=== PATIENT | female | born 1945 | race Caucasian/White ===

== ENCOUNTER → 2023-07-05 11:11 | Outpatient (REF) | payer MEDICARE, OTHER, SELFPAY ==
[2023-07-05 12:12] LABS: % Basophils 0.5 % (0-2); % Eosinophils 2.4 % (0-6); % Immature Granulocytes 0.5 % (0-0.5); % Lymphocytes 23.1 % (20.5-51.1); % Monocytes 6.1 % (1.7-9.3); % Neutrophils 67.4 % (42.2-75.2); Absolute Eosinophils 0.2 10^3/uL (0-0.7); Absolute Lymphocytes 1.8 10^3/uL (1.2-3.4); Absolute Monocytes 0.5 10^3/uL (0.1-0.6); Absolute Neutrophils 5.3 10^3/uL (1.4-6.5); Hematocrit 44.9 % (37.0-47.0); Mean Corp Hgb Conc. 33.4 g/dL (33.0-37.0); Mean Corpuscular Hgb 31.5 pg (27.0-31.0); Mean Corpuscular Volume 94.3 fL (81.0-99.0); Nucleated Red Blood Cells % 0 %; Platelet Count 191 10^3/uL (130-400); Red Blood Cell Count 4.76 10^6/uL (4.20-5.40); Red Cell Dist. Width 12.9 % (11.5-14.5); White Blood Cell Count 7.9 10^3/uL (4.8-10.8)
[2023-07-05 12:56] LABS: ALT (SGPT) 29 U/L (0-35); AST (SGOT) 28 U/L (14-36); Albumin 4.6 g/dl (3.5-5.0); Alkaline Phosphatase 85 U/L (38-126); Blood Urea Nitrogen 26 mg/dl (7-17); Calcium 10.3 mg/dl (8.4-10.2); Carbon Dioxide 32 mmol/L (22-30); Chloride 103 mmol/L (98-107); Glucose 94 mg/dl (70-99); Sodium 142 mmol/L (135-145); Total Bilirubin 0.6 mg/dl (0.2-1.3); Total Protein 7.8 g/dl (6.3-8.2); Uric Acid 8.3 mg/dl (2.5-6.2); eGFR 35.23
[2023-07-05 14:44] LABS: Erythrocyte Sed Rate 17 mm/hour (0-20)
[2023-07-07 08:02] LABS: CCP Antibody IgG/IgA 10 Units (0-19)
[2023-07-09 16:46] LABS: Rheumatoid Agglutinin Less Than 10 IU (<10 IU)
== END ==
LOC: REG 11:11
PROVIDERS: ATTENDING PHYSICIAN Physician Assistant; FAMILY PHYSICIAN Internal Medicine
DX: M79.671 Pain in right foot (principal); M06.4 Inflammatory polyarthropathy; M10.9 Gout, unspecified
CPT/HCPCS: 36415; 73630; 80053; 84550; 85025; 85652; 86140; 86200; 86430

== ENCOUNTER → 2023-09-28 10:25 | Outpatient (REF) | payer MEDICARE, OTHER, SELFPAY | LOC: MRI 3T 10:25 | PROVIDERS: ATTENDING PHYSICIAN Internal Medicine Hematology & Oncology; FAMILY PHYSICIAN Internal Medicine; REFERRING PHYSICIAN Urology | DX: N20.0 Calculus of kidney (principal); R35.0 Frequency of micturition; C50.411 Malignant neoplasm of upper-outer quadrant of right female breast; Z12.31 Encounter for screening mammogram for malignant neoplasm of breast | CPT/HCPCS: 76775; 77049; A9585 ==

== ENCOUNTER → 2023-11-01 11:02 | Outpatient (REF) | payer MEDICARE, OTHER, SELFPAY ==
[2023-11-01 12:40] LABS: Blood Urea Nitrogen 29 mg/dl (7-17); Calcium 10.6 mg/dl (8.4-10.2); Carbon Dioxide 31 mmol/L (22-30); Chloride 105 mmol/L (98-107); Glucose 99 mg/dl (70-99); Potassium 5.1 mmol/L (3.5-5.1); Sodium 146 mmol/L (135-145); Uric Acid 9.3 mg/dl (2.5-6.2); eGFR 35.23
[2023-11-03 09:08] LABS: Intact PTH 79.8 pg/ml (13.6-85.8)
== END ==
LOC: REG 11:02
PROVIDERS: ATTENDING PHYSICIAN Urology; FAMILY PHYSICIAN Internal Medicine
DX: N20.0 Calculus of kidney (principal)
CPT/HCPCS: 36415; 80048; 83970; 84550

== ENCOUNTER 2023-12-03 09:23 | Inpatient (IN) | payer MEDICARE, OTHER, SELFPAY ==
[2023-12-03 05:28] VITALS: BMI 30.3
[2023-12-03 05:38] VITALS: BP 153/72
[2023-12-03 05:41] VITALS: BP 153/72
--- NOTE | 2023-12-03 07:15 | ED.GENMED ---
History of Present Illness
General
Chief Complaint: Fall
Source: patient
Exam Limitations: none
Time Seen by Provider: 12/03/23 06:06
Nursing documentation reviewed up to this point in time: agreed with
History of Present Illness
History of Present Illness:
78-year-old female with a past medical history of hypertension, hyperlipidemia who presents to the emergency room from home where she lives independently and ambulates without assistance; she presents after mechanical fall with left hip pain.
Patient reports that she has issues with chronic incontinence of urine. She says that she woke up last night was having some incontinence and rodriguez to the bathroom. She says that some of her urine leaked on the bathroom floor and she slipped and
fell onto her left hip. She says that she did not hit her head or lose consciousness. She did injure her left elbow she says that she hit it on the toilet seat. She says that she had significant pain in the hip immediately and had to crawl to the
phone to call 911. She denies any headache. Denies any neck pain. She denies any back pain. Denies any chest or abdominal pain. She has some mild pain in the left elbow but most of her pain is in the left lateral hip. Pain much worse with
movement, better when sitting still. She is on aspirin but no other blood thinners.
Past History
Past History
ED Past Medical History: None, Cancer, HTN and Hypercholesterolemia
ED Past Surgical History: None and Gynecological
Social History
Tobacco: Non-smoker
Alcohol: None
Drug: None
Personal:
Living: with family
Employment: Retired
Review of Systems
Review of Systems
All Other Systems: ROS reviewed and negative except as documented in HPI and ROS
Respiratory: Denies trouble breathing
Cardiac: Denies chest pain
ABD/GI: Denies abdominal pain, nausea or vomiting
: Denies flank pain
Musculoskeletal: Reports joint pain; Denies neck pain or back pain
Neurological: Denies dizzy or headache
Phy Exam
Physical Exam
Physical Exam:
General: Awake, alert; no acute distress
Head: Normocephalic, atraumatic
Eyes: Conjunctiva normal, pupils equal round reactive to light bilaterally
Throat: Airway intact, handling secretions
Neck: Trachea midline, no cervical spine tenderness
Back: No signs of trauma the back or flank and no tenderness in the thoracic or lumbar spine
Lungs: Clear to auscultation bilaterally, no wheezing, rales, rhonchi
Heart: Regular rate and rhythm, no murmurs, gallops, or rubs; no chest wall tender
Abd: Soft, non distended, nontender
Neuro: Cranial nerves grossly intact, speech fluid
Skin: Large hematoma left elbow
Extremities: Patient has shortened and externally rotated left lower extremity; she has pain with attempts at internal/external rotation of left hip and severe pain with any attempts at flexion; she has no tenderness in the left lower leg,
knee/ankle and no edema in the left lower extremity, she has a palpable left PT and DP pulse; right lower extremity atraumatic and she moves it through comfortable range of motion although some pain in the left hip with attempts at movement on the
right; she has a large hematoma on the left elbow and tenderness in this area but moves the elbow through full range of motion, no tenderness in the left shoulder or wrist; right upper extremity atraumatic; good bilateral radial pulses
Scores
Heart Failure Risk
Heart Failure Risk Score: Not Applicable
Heart Score for Chest Pain Patients
STEMI patient?: Not applicable
Withdrawal Assessment of Alcohol
Withdrawal Assessment Completed?: Not applicable
Course
Orders/Labs/Results
Orders:
Orders
12/03/23 05:29
CR Hip - LT w/wo Pel 2-3 Vw* Urgent
Comment:
Reason For Exam: injury, fall
Include a pelvis x-ray?: Yes
Elbow, Left [CR Elbow - Left Min 3 Views ] Urgent
Comment:
Reason For Exam: injury, fall
12/03/23 06:58
Electrocardiogram (*1) Urgent
Reason for Study: PreOp
ORTHOPEDIC CONSULT Urgent
Consulting Provider: Richard Thornton
Was physician already notified: Yes
EKG- Treatment ONCE
12/03/23 07:13
Type+Screen Urgent
Complete Blood Count/With Diff Urgent
Comprehensive Metabolic Panel Urgent
PTT Urgent
Prothrombin Time Urgent
Vital Signs
Initial and Last Documented VS:
Initial Vital Signs
Pulse Ox
96
12/03/23 05:36
Last Documented Vital Signs
Temp Pulse Resp BP Pulse Ox
36.7 C 59 17 153/72 95
12/03/23 05:41 12/03/23 05:41 12/03/23 05:41 12/03/23 05:41 12/03/23 05:41
MDM/Problems Addressed
Differential Diagnosis Includes:
Hip pain: Left hip fracture, left hip dislocation, left hip contusion
Left elbow pain: Contusion/hematoma, fracture, dislocation
MDM/Problems Addressed:
78-year-old female presents after mechanical slip and fall this morning onto her left hip. She presents with left hip pain and some pain in her left elbow. No head trauma. On aspirin but no other blood thinners. Mildly hypertensive but otherwise
normal vitals. Physical exam as above. She had x-rays ordered in triage�reviewed x-ray of the left hip and it appears to show an acute left hip fracture on my independent review. Reviewed x-ray of the left elbow and no acute osseous abnormality
although she does clearly have soft tissue swelling consistent with a large hematoma. Will plan to place an IV check basic screening labs, screening EKG. Case discussed with orthopedics for consultation regarding left hip fracture�plan likely for
operative repair tomorrow. Case discussed with hospitalist for admission. I did offer pain control�patient says that her pain is very well-controlled she is sitting still in bed and declined pain meds at this point.
Chronic conditions affecting care:
Urinary incontinence chronically which caused a slip and fall in the bathroom
Acute Exacerbation and/or Progression of Chronic Illness:
Acutely hypertensive with no signs or symptoms of hypertensive emergency�no indication for emergent antihypertensive therapy at present
Acute Exacerbation and/or Progression of Chronic Illness: HTN
*Radiology
Radiology exam reviewed: preliminary read by ED provider
*Pulse Oximetry
Patient hypoxic: no
*EKG
Interpreted by ED Provider?: Yes
Heart Rate: 65
Rate: normal
Rhythm: sinus
[place]: normal axis
Interval: normal interval
QRS Pattern: right bundle branch block
Ischemia: no ischemia
*Critical Care Note
Total Time (30-74mins, 75-104mins- exclusive of procedures): Not Applicable
Data Reviewed
Review of Other/Old Records Reveals: Labs and Records
Source: patient and ambulance crew
Patient Management
Discussion with other providers: Hospitalist (Case discussed with hospitalist) and Price Economist (Case discussed with orthopedics)
Escalation/DeEscalation of care consider admission/obs:
Admission indicated
ED Attending Note
-
Portions of this chart may have been created with voice recognition software.� Occasional wrong word or��sound alike� substitutions may have occurred due to the inherent limitations of voice recognition software.
Discharge Plan
Departure
Patient Disposition: Admit
Date of Disposition: 12/03/23
Time of Disposition: 07:35
Admit to doctor: Sona
Presentation/result/management discussed w/ accepting MD/DO: Hospitalist
Discharge Problem:
Closed fracture of left hip, Traumatic hematoma of left elbow
Prescriptions:
No Action
multivitamin [One-A-Day Essential] 1 EACH tablet
1 ea PO DAILY
sertraline 100 MG tablet
100 mg PO DAILY
ascorbic acid (vitamin C) [Vitamin C] 500 MG capsule, extended release
1,000 mg PO HS
aspirin 81 MG tablet,chewable
81 mg PO HS
amlodipine [Norvasc] 5 MG tablet
5 mg PO HS
atorvastatin 40 mg Tablet
40 mg PO HS
gabapentin 100 mg Capsule
100 mg PO DAILY
metoprolol succinate 25 mg Tablet Extended Release 24 Hr
25 mg PO DAILY
coQ10 (ubiquinol) 200 mg Capsule
400 mg PO DAILY
Referrals:
Ken Mckeon MD [Family Provider] -
Interventions
Interventions:
*Risk Screen - Suicide Last Done: 12/03/23 05:35
*General Assessment Last Done: 12/03/23 05:33
*Neglect/Abuse Screening Last Done: 12/03/23 05:35
ED- Fall Risk Assessment Last Done: 12/03/23 05:36
*ED COVID-19 Vaccine History Last Done: 12/03/23 05:33
ED-Musculoskeletal Assessment Last Done: 12/03/23 05:36
ED- Neurological Assessment Last Done: 12/03/23 05:36
ED-Skin Assessment Last Done: 12/03/23 05:36
Discharge Date and Time
Print Language: CHILEAN
[2023-12-03 07:42] LABS: % Basophils 0.2 % (0-2); % Eosinophils 0.1 % (0-6); % Immature Granulocytes 0.7 % (0-0.5); % Lymphocytes 3.7 % (20.5-51.1); % Neutrophils 91.3 % (42.2-75.2); Absolute Immature Granulocytes 0.1 10^3/uL (0-0.05); Absolute Lymphocytes 0.6 10^3/uL (1.2-3.4); Absolute Monocytes 0.7 10^3/uL (0.1-0.6); Absolute Neutrophils 15.1 10^3/uL (1.4-6.5); Hematocrit 42.7 % (37.0-47.0); Mean Corp Hgb Conc. 35.1 g/dL (33.0-37.0); Mean Corpuscular Hgb 31.3 pg (27.0-31.0); Mean Corpuscular Volume 89.1 fL (81.0-99.0); Nucleated Red Blood Cells % 0 %; Platelet Count 178 10^3/uL (130-400); Red Blood Cell Count 4.79 10^6/uL (4.20-5.40); Red Cell Dist. Width 12.8 % (11.5-14.5); White Blood Cell Count 16.6 10^3/uL (4.8-10.8)
[2023-12-03 07:47] LABS: INR 1.02; PT 13.4 Sec (11.4-14.6)
[2023-12-03 07:48] LABS: APTT 28.5 Sec (23.4-35.0)
[2023-12-03 07:58] LABS: ALT (SGPT) 28 U/L (0-35); AST (SGOT) 41 U/L (14-36); Albumin 4.5 g/dl (3.5-5.0); Alkaline Phosphatase 80 U/L (38-126); Blood Urea Nitrogen 19 mg/dl (7-17); Calcium 9.9 mg/dl (8.4-10.2); Carbon Dioxide 29 mmol/L (22-30); Chloride 104 mmol/L (98-107); Estimated Creatinine Clearance 42 ml/min; Glucose 151 mg/dl (70-99); Potassium 4.1 mmol/L (3.5-5.1); Sodium 141 mmol/L (135-145); Total Bilirubin 0.7 mg/dl (0.2-1.3); Total Protein 7.4 g/dl (6.3-8.2); eGFR 46.05
--- NOTE | 2023-12-03 08:49 | HPS.HSE ---
Family Physician
-
Family Physician: Ken Mckeon
Chief Complaint
-
mechanical fall with L hip pain
History of Present Illness
HPI: 78-year-old female with past medical history of hypertension, hyperlipidemia, R breast cancer s/p mastectomy; who presented with mechanical fall at home and left hip pain. Patient reported that she has chronic incontinence of urine. She woke up
due to incontinence and rushed to the bathroom. Her urine leaked onto the bathroom floor and she slipped and fell onto her left hip. She did not hit her head or lose consciousness. She also injured her left elbow.
She denies to other symptoms.
She is on baby aspirin but no other blood thinners.
Medical History
Past Medical History
Past Medical History: Reports Other
Additional Past Medical History:
hypertension
hyperlipidemia
R breast cancer s/p mastectomy
CKD stage 3
Past Surgical History: Reports Other
Additional Past Surgical History:
R breast cancer s/p mastectomy
Social History
Tobacco: Former Smoker (quit at age 29 )
Alcohol: Occasional (3 times a week- wine )
Family History
Family History: Not pertinent
Allergies / Home Medications
Allergies reflects when Allergies were last updated in [facility].
Home Medications with original date entered in [facility]
Allergy/Medication List:
Allergies
Allergy/AdvReac Type Severity Reaction Status Date / Time
adhesive Allergy Rash, itchy Verified 12/03/23 05:42
Home Medications
ascorbic acid (vitamin C) 500 mg capsule,extended release (Vitamin C) 1,000 mg PO HS Supplement 01/21/15
aspirin 81 mg chewable tablet 81 mg PO HS Blood Clot Prevention/Tx 01/21/15
multivitamin (One-A-Day Essential tablet) 1 ea PO DAILY Supplement 01/21/15
sertraline 100 mg tablet 100 mg PO DAILY depression/anxiety 01/21/15
amlodipine 5 mg tablet (Norvasc) 5 mg PO HS Blood Pressure 04/01/20
atorvastatin 40 mg tablet 40 mg PO HS High Cholesterol 12/03/23
coQ10 (ubiquinol) 200 mg capsule 400 mg PO DAILY Supplement 12/03/23
gabapentin 100 mg capsule 100 mg PO DAILY Pain 12/03/23
metoprolol succinate 25 mg tablet,extended release 24 hr 50 mg PO DAILY Blood Pressure 12/03/23
Review of Systems
-
Musculoskeletal: Reports See HPI and Joint Pain (L hip )
Physical Exam
Vital Signs
Vital Signs
Temp Pulse Resp BP Pulse Ox
36.7 C 59 17 153/72 95
12/03/23 05:41 12/03/23 05:41 12/03/23 05:41 12/03/23 05:41 12/03/23 05:41
Physical Exam
General: Well Developed, Well Nourished, No Apparent Distress and Conversant
HEENT: NormoCephalic, Moist mucous membranes and Atraumatic
Respiratory: Clear and Non Labored Respirations; No Accessory Resp Muscle Use
Cardiac: S1/S2 and Regular Rhythm; No Murmur or Rub
GI: Soft, Non Tender, Non Distended and Normal Bowel Sounds; No Organomegaly
Rectal: Deferred by Provider
Neuro: Awake and Alert
Psych: Calm and Intact Judgment/Insight
Laboratory Results
-
12/03/23 07:13
12/03/23 07:13
Laboratory Results
PT 13.4 Sec (11.4-14.6) 12/03/23 07:13
INR 1.02 12/03/23 07:13
APTT 28.5 Sec (23.4-35.0) 12/03/23 07:13
Total Bilirubin 0.7 mg/dl (0.2-1.3) 12/03/23 07:13
AST 41 U/L (14-36) H 12/03/23 07:13
ALT 28 U/L (0-35) 12/03/23 07:13
Alkaline Phosphatase 80 U/L (38-126) 12/03/23 07:13
Data Reviewed
-
Diagnostic Radiology: Report Reviewed by me
Lab Data: Labs Reviewed by me
Impression/Plan
-
HPI: 78-year-old female with past medical history of hypertension, hyperlipidemia, R breast cancer s/p mastectomy; who presented with mechanical fall at home and left hip pain. Patient reported that she has chronic incontinence of urine. She woke up
due to incontinence and rushed to the bathroom. Her urine leaked onto the bathroom floor and she slipped and fell onto her left hip. She did not hit her head or lose consciousness. She also injured her left elbow.
She denies to other symptoms.
She is on baby aspirin but no other blood thinners.
A/P:
# Mechanical fall with Left hip fracture
XR noted Fracture of proximal left femur neck.
Ortho consulted, plan for OR 12/03
Pt is at intermediae risk for low-mod risk procedure. Benefit of procedure outweighs risk
# HTN
Cont SENIOR INFORMATION SECURITY ANALYST Toprol with hold parameter
Hold SENIOR INFORMATION SECURITY ANALYST Norvasc
# Hypercholesterolemia
SENIOR INFORMATION SECURITY ANALYST Lipitor
# CKD stage 3
SCr at 1.2, at baseline
DVT ppx: SCD R LE
FC
[2023-12-03 12:05] VITALS: BP 123/82
--- NOTE | 2023-12-03 12:20 | PTCARENOTE ---
Pt arrived to [facility] from ED s/p fall, L hip fracture. Pt transferred from stretcher to bed. LLE externally rotated, NV intact. Pt states mild pain at this time. Oriented to call gutierrez and room, bed locked and in lowest position, call gutierrez within
reach.
[2023-12-03] MEDS: TYLENOL PO ×2 (12:45→12:50)
[2023-12-03] MEDS: ZOFRAN 4 MG IV (13:08)
[2023-12-03] MEDS: MORPHINE SULFATE 1 MG IV (13:14)
[2023-12-03 15:02] VITALS: BP 108/76
[2023-12-03] MEDS: TYLENOL 650 MG PO ×2 (16:46→20:09)
--- NOTE | 2023-12-03 17:17 | CON.ORTHO ---
Consultation
-
Date/Time Consultation Requested: 7 AM 12/03/23
Date/Time Consultation Performed: 515 PM 12/03/23
Requesting Provider: Kyle
Performing Provider: Norberto
Reason for Consultation: Left hip fracture
Consultation - Orthopedics
History
HPI: 78-year-old female presented to the emergency department status post fall at home with complaints of left hip pain and inability to bear weight. She was subsequently diagnosed with a left displaced femoral neck fracture. She was admitted to
the hospitalist service and orthopedics was consulted for further evaluation and treatment. She reports that she was incontinent and slipped on her urine trending up to the bathroom at home. She does report a history of urinary incontinence. She
also reports a history of a TIA that she reports is left her with some residual left lower extremity altered sensation numbness and occasional falls. She is also reporting some elbow pain with associated swelling and hematoma. 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 She is on aspirin 81 mg daily
Allergies / Home Medications
Past medical history: Breast cancer, hypertension, hypercholesterolemia, TIA, chronic kidney disease
Past surgical history: Mastectomy, radial head arthroplasty left elbow
Family history: Not pertinent
Social history: Lives alone at home with a cat, former smoker
Allergy/AdvReac Type Severity Reaction Status Date / Time
adhesive Allergy Rash, itchy Verified 12/03/23 05:42
�Medication �Instructions �Recorded
ascorbic acid (vitamin C) 500 mg 1,000 mg PO HS Supplement 01/21/15
capsule,extended release (Vitamin
C)
aspirin 81 mg chewable tablet 81 mg PO HS Blood Clot 01/21/15
Prevention/Tx
multivitamin (One-A-Day Essential 1 ea PO DAILY Supplement 01/21/15
tablet)
sertraline 100 mg tablet 100 mg PO DAILY depression/anxiety 01/21/15
amlodipine 5 mg tablet (Norvasc) 5 mg PO HS Blood Pressure 04/01/20
atorvastatin 40 mg tablet 40 mg PO HS High Cholesterol 12/03/23
coQ10 (ubiquinol) 200 mg capsule 400 mg PO DAILY Supplement 12/03/23
gabapentin 100 mg capsule 100 mg PO DAILY Pain 12/03/23
metoprolol succinate 25 mg 50 mg PO DAILY Blood Pressure 12/03/23
tablet,extended release 24 hr
Vital Signs / Lab Results
Temp Pulse Resp BP Pulse Ox
99.1 F 77 17 108/76 94
12/03/23 15:02 12/03/23 15:02 12/03/23 15:02 12/03/23 15:02 12/03/23 15:02
12/03/23 07:13
12/03/23 07:13
10 point review systems reviewed and negative unless otherwise stated
General: Pleasant, no acute distress at rest
Musculoskeletal left lower extremity
Skin intact, no erythema, no ecchymotic staining
No palpable ipsilateral knee effusion
Extremity short externally rotated
Tenderness palpation over groin and lateral trochanteric flare
No tense palpation over knee
Positive EHL, FHL, ankle dorsiflexion, plantarflexion
Sensation grossly tact light touch in all distributions distally with some baseline altered sensation diffusely
Brisk cap refill
There is hematoma noted on tertiary examination left elbow that is moderately tender directly over hematoma however patient has good pain-free range of motion
No other areas of bony tenderness palpation or crepitation of long bones or joints on tertiary examination
Diagnostic studies
X-rays left hip reviewed by myself. There is evidence of displaced left femoral neck fracture. X-rays of left elbow were also reviewed that shows large soft tissue swelling over tip of olecranon without evidence of fracture. Radial head
arthroplasty in place
[ ]
Assessment / Plan
78-year-old female status post fall with left displaced femoral neck fracture. Had a long and detailed discussion the patient regarding diagnosis and treatment options. We discussed both surgical and nonsurgical options. We discussed both
fixation and arthroplasty options. My recommendation proceed with left hip hemiarthroplasty given the displaced nature of the fracture. I do think her history of falls TIA altered sensation may place her at a higher risk of subsequent instability
therefore would recommend a hemiarthroplasty. We discussed risks benefits and alternatives to surgery. We discussed the usual expected perioperative and postoperative course. After discussion verbal consent was obtained. Will plan to obtain
written informed consent for left hip hemiarthroplasty prior to surgery tomorrow.
Nonweightbearing left lower extremity
Pain control
DVT prophylaxis: Hold in preparation for OR
Medical management per primary team
N.p.o. at midnight
Plan for OR tomorrow pending OR availability and medical clearance
[2023-12-03] MEDS: COLACE 100 MG PO (20:08)
[2023-12-03] MEDS: SENOKOT 17.2 MG PO (20:08)
[2023-12-03] MEDS: LIPITOR 40 MG PO (20:09)
[2023-12-03 23:18] VITALS: BP 149/67
[2023-12-04] VITALS (11 sets, daily range): BP systolic 146–205; BP diastolic 75–98
[2023-12-04] MEDS: TYLENOL 650 MG PO ×4 (00:23→11:31)
[2023-12-04 00:42] LABS: Urine Albumin Trace (Neg - Trace); Urine Bilirubin Negative (Negative); Urine Character Slightly Cloudy (Clear); Urine Color Yellow; Urine Glucose Negative (Negative); Urine Ketone Trace (Negative); Urine Leukocyte 2+ (Negative); Urine Nitrite Negative (Negative); Urine Occult Blood Negative (Negative); Urine Specific Gravity 1.015 (<1.030); Urine Urobilinogen Negative (Neg - 1+)
[2023-12-04 01:39] LABS: Urine Amorphous Seen; Urine Bacteria Many (Negative); Urine Calcium Oxalate Crystals Seen; Urine Mucus Moderate; Urine Squamous Cell >30 /LPF (Few); Urine White Cell 30-40 /HPF (0-5)
[2023-12-04 08:14] LABS: Hematocrit 42.1 % (37.0-47.0); Hemoglobin 14.6 g/dL (12.0-16.0); Mean Corp Hgb Conc. 34.7 g/dL (33.0-37.0); Mean Corpuscular Hgb 31.7 pg (27.0-31.0); Mean Corpuscular Volume 91.3 fL (81.0-99.0); Mean Platelet Volume 10.8 fL (7.4-10.4); Platelet Count 149 10^3/uL (130-400); Red Blood Cell Count 4.61 10^6/uL (4.20-5.40); Red Cell Dist. Width 13.2 % (11.5-14.5); White Blood Cell Count 13.4 10^3/uL (4.8-10.8)
[2023-12-04] MEDS: ZOLOFT 100 MG PO (08:17)
[2023-12-04] MEDS: TOPROL XL 50 MG PO (08:18)
[2023-12-04] MEDS: NEURONTIN 100 MG PO (08:18)
[2023-12-04] MEDS: SENOKOT 17.2 MG PO (08:18)
[2023-12-04] MEDS: COLACE 100 MG PO (08:19)
[2023-12-04 08:37] LABS: Blood Urea Nitrogen 26 mg/dl (7-17); Calcium 9.4 mg/dl (8.4-10.2); Carbon Dioxide 26 mmol/L (22-30); Chloride 107 mmol/L (98-107); Estimated Creatinine Clearance 36 ml/min; Glucose 139 mg/dl (70-99); Sodium 141 mmol/L (135-145); eGFR 38.27
--- NOTE | 2023-12-04 11:09 | W.PN.HOSP.TC ---
Today's Communication/Plan
-
see A/P
Assessment / Plan
Assessment / Plan
HPI: 78-year-old female with past medical history of hypertension, hyperlipidemia, R breast cancer s/p mastectomy; who presented with mechanical fall at home and left hip pain. Patient reported that she has chronic incontinence of urine. She woke up
due to incontinence and rushed to the bathroom. Her urine leaked onto the bathroom floor and she slipped and fell onto her left hip. She did not hit her head or lose consciousness. She also injured her left elbow.
She denies to other symptoms.
She is on baby aspirin but no other blood thinners.
A/P:
# Mechanical fall with Left hip fracture
XR noted Fracture of proximal left femur neck.
Ortho consulted, plan for OR 12/03
Pt is at intermediae risk for low-mod risk procedure. Benefit of procedure outweighs risk
# Leucocytosis likely reactive
cont to trend WBC
# HTN
Cont VEHICLE MAINTENANCE SUPERVISOR Toprol with hold parameter
Hold VEHICLE MAINTENANCE SUPERVISOR Norvasc
# Hypercholesterolemia
VEHICLE MAINTENANCE SUPERVISOR Lipitor
# CKD stage 3
SCr 1.4 today, at baseline
DVT ppx: SCD R LE
FC
Anticipated Discharge: 24 - 48 hours
Subjective/Interval History
-
Date of Service: December 04, 2023
Objective Data
-
Labs:
Laboratory Results
12/04/23
07:56
WBC 13.4 H
Hgb 14.6
Hct 42.1
Plt Count 149
Sodium 141
Potassium 4.0
Chloride 107
Carbon Dioxide 26
BUN 26 H
Creatinine 1.4 H
Glucose 139 H
Calcium 9.4
Vital Signs:
Vital Signs
Temp Pulse Resp BP Pulse Ox
36.8 C 72 17 146/80 94
12/04/23 07:46 07/09/24 08:18 12/04/23 07:46 12/04/23 08:18 12/04/23 08:00
I&O
12/03/23 12/04/23 12/05/23
06:59 06:59 06:59
Intake Total 780 / 780
Output Total 300 / 300
Balance 480 / 480
Review of Systems
-
All other systems: Reviewed and negative
Physical Exam
-
General: Well Developed, Well Nourished, No Apparent Distress, Comfortable and Conversant; Negative Respiratory Distress
HEENT: Normocephalic, Atraumatic, Nose Appears Normal, Ears Appear Normal and Hearing Impaired; Negative Oxygen
Respiratory: Clear to Auscultation and Non Labored Respirations; Negative Accessory Resp Muscle Use
Cardiac: Regular Rhythm, S1/S2 and Murmur
GI: Soft, Nontender and Nondistended
Skin: Warm and Dry
Neuro: Awake, Alert, Oriented and AO x 3
Psych: Calm and Intact Judgement/Insight
Data Reviewed
-
Diagnostic Radiology: Report Reviewed by me
Labs: Labs Reviewed by me
--- NOTE | 2023-12-04 15:41 | CM ---
CM met with pt bedside
[place] resides [place] at the [facility] in an apartment, no steps
Pt notes independence with her ADLs, drives +
Has for walker for use PRN from prior injury
Pt has a meal and cleaning service through her building
PCP- STEPHANIE Peña
RX- Ken Mckeon
Plan for OR today for hip surgery
Will benefit from post-op PT/OT
SNF PAC provided for review
Anticipate need for SNF on dc
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
She will be primary contact and pt appreciates updates to her dtr
Discharge Disposition- anticipate SNF
[2023-12-04] MEDS: TYLENOL PO ×2 (16:15→22:10)
--- NOTE | 2023-12-04 21:27 | PTCARENOTE ---
Pt to OR. Pharmacy to send ABX directly to OR.
[2023-12-04] MEDS: COLACE PO (22:10)
[2023-12-04] MEDS: SENOKOT PO (22:10)
[2023-12-04] MEDS: LIPITOR PO (22:10)
--- NOTE | 2023-12-04 23:10 | OR.RPT ---
Operative Report
Operative Report
Anesthesia Type:
General
Operative Indications:
Displaced femoral neck fracture
Operative Findings :
Same
Complications:
None
Implants:
LD fracture Adelso 11 cemented femoral stem, 45 mm bipolar shell, 28+3.5 head
Procedure and Technique:
Left hip hemiarthroplasty, cemented
INDICATIONS FOR PROCEDURE:
Patient active independent 78-year-old female who unfortunately sustained mechanical fall at home tripping to try to go to the bathroom. She was admitted to the hospital after being diagnosed with a displaced left femoral neck fracture in the
emergency department. Orthopedics was consulted. Had a long discussion the patient regarding diagnosis and treatment options. We discussed both surgical and nonsurgical options. We discussed both arthroplasty and fixation options. It was my
recommendation to proceed with left hip hemiarthroplasty. We discussed risks benefits and alternatives to surgery. Discussed the usual expected perioperative and postoperative course. After discussion written informed consent was obtained for
left hip hemiarthroplasty
OPERATIVE PROCEDURE:
Patient was seen and identified in preoperative holding area. Operative extremities marked. All questions were addressed. She is taken the operating room where general anesthesia was administered. She was placed in lateral decubitus position
with the use of a beanbag. Operative extremity was then prepped and draped in normal sterile fashion. Timeout was performed again identifying the correct operative extremity. Preoperative antibiotics were addressed. Standard posterior approach
to the hip was taken. Sharp dissection was carried through skin and subcutaneous tissues deep fascial layer. Piriformis was identified and this was taken down and tagged. External rotators were taken down and tagged. T capsulotomy was performed
and the femoral head was then identified and removed at the fracture site. This was measured and an appropriate sized bone stick was placed in the acetabulum and felt to have appropriate suction fit. Attention was then turned to the femoral neck.
[place] up cut was performed. [employer] cutter was placed after soft tissue was removed from the piriformis fossa. Canal finder was then placed and stepwise broaching was performed. Trialing was performed with a +3.5 mm head and found to be very
stable particularly flexion and adduction. Minimal shuck is noted. Trial components were removed and femoral canal was copiously irrigated and dried. Cement restrictor was placed. Pressurized cement was placed in the femoral canal component was
placed in appropriate anteversion. Final components were then placed and hip was reduced and again taken through range of motion found to be stable. Wound was then copiously irrigated normal saline solution and Betadine solution. Capsule as well
as piriformis and short external rotators were repaired to the greater trochanter through osseous tunnels. Deep fascial layer was closed with 0 Vicryl interrupted. Subcutaneous layer was closed with 2-0 Vicryl. Skin was closed eleni. Aquacel
dressing was placed. Anesthesia was reversed and patient was taken to PACU in stable condition. Postoperative plans include weightbearing to patient's tolerance operative extremity. Will recommend DVT prophylaxis consisting of Lovenox 40 mg daily
for 28 days plan to follow-up in the office in 2 weeks for repeat evaluation
Disposition:
PACU stable condition
[2023-12-04] MEDS: ANCEF 10 IV (23:56)
[2023-12-04] MEDS: NSS 1000 IV (23:58)
[2023-12-05] VITALS (9 sets, daily range): BP systolic 123–179; BP diastolic 58–92; PULSE 78–83; O2SAT 91–93
[2023-12-05] MEDS: TYLENOL PO ×3 (00:17→18:48)
--- NOTE | 2023-12-05 00:30 | PTCARENOTE ---
Received pt post op from PACU. Pt AAOx3. Pt now with left hip aquacell dressing in place. No drainage noted at this time. Abductor pillow in place. Pure wick applied. Right Knee high seq in place. Neurovascular checks as documented. pt reports pain
at tolerable level at this time. Left AC int infusing NSS@100ml/hr. Oral care provided, face washed. Call gutierrez in reach. WIll continue to monitor.
[2023-12-05] MEDS: ANCEF 5 IV ×2 (05:49→14:29)
[2023-12-05 07:34] LABS: Hemoglobin 13.3 g/dL (12.0-16.0); Mean Corpuscular Hgb 31.3 pg (27.0-31.0); Mean Corpuscular Volume 89.4 fL (81.0-99.0); Mean Platelet Volume 11.4 fL (7.4-10.4); Platelet Count 97 10^3/uL (130-400); Red Blood Cell Count 4.25 10^6/uL (4.20-5.40); Red Cell Dist. Width 13.2 % (11.5-14.5); White Blood Cell Count 11.6 10^3/uL (4.8-10.8)
[2023-12-05] MEDS: SENOKOT 17.2 MG PO ×2 (08:39→20:01)
[2023-12-05] MEDS: COLACE 100 MG PO ×2 (08:40→20:01)
[2023-12-05] MEDS: LOVENOX 40 MG SC (08:40)
[2023-12-05] MEDS: ZOLOFT 100 MG PO (08:40)
[2023-12-05] MEDS: TOPROL XL 50 MG PO (08:40)
[2023-12-05] MEDS: NEURONTIN 100 MG PO (08:40)
[2023-12-05] MEDS: TYLENOL 650 MG PO ×3 (08:40→20:02)
[2023-12-05] MEDS: ROXICODONE 5 MG PO ×2 (08:52→14:30)
[2023-12-05] MEDS: NSS 1000 IV (09:08)
[2023-12-05 09:11] LABS: Blood Urea Nitrogen 29 mg/dl (7-17); Calcium 8.8 mg/dl (8.4-10.2); Carbon Dioxide 23 mmol/L (22-30); Chloride 107 mmol/L (98-107); Estimated Creatinine Clearance 36 ml/min; Glucose 135 mg/dl (70-99); Potassium 4.4 mmol/L (3.5-5.1); Sodium 141 mmol/L (135-145); eGFR 38.27
--- NOTE | 2023-12-05 09:44 | W.PN.HOSP.TC ---
Addendum entered and electronically signed by Funmilayo Magallanes MD 12/05/23 12:41:
# left hip fracture, Multifactorial due to low level trauma and age related osteoporosis
Original Note:
Today's Communication/Plan
-
Dispo planning
Assessment / Plan
Assessment / Plan
HPI: 78-year-old female with past medical history of hypertension, hyperlipidemia, R breast cancer s/p mastectomy; who presented with mechanical fall at home and left hip pain. Patient reported that she has chronic incontinence of urine. She woke up
due to incontinence and rushed to the bathroom. Her urine leaked onto the bathroom floor and she slipped and fell onto her left hip. She did not hit her head or lose consciousness. She also injured her left elbow.
She denies to other symptoms.
She is on baby aspirin but no other blood thinners.
A/P:
# Mechanical fall with Left hip fracture
XR noted Fracture of proximal left femur neck.
s/p L hip repair by ortho Dr Thornton on 12/03
PT OT eval for SNF dispo
# Leucocytosis likely reactive
cont to trend WBC
# HTN
Cont COURT RECORDING MONITOR Toprol with hold parameter
Resume COURT RECORDING MONITOR Norvasc
IV hydralazine PRN
# Hypercholesterolemia
COURT RECORDING MONITOR Lipitor
# CKD stage 3
SCr 1.4 today, at baseline
# R breast cancer s/p mastectomy
DVT ppx: lovenox SQ
FC
Dispo planning
Anticipated Discharge: 24 - 48 hours
Subjective/Interval History
-
Date of Service: December 05, 2023
Objective Data
-
Labs:
Laboratory Results
12/05/23
07:00
WBC 11.6 H
Hgb 13.3
Hct 38.0
Plt Count 97 L D
Sodium 141
Potassium 4.4
Chloride 107
Carbon Dioxide 23
BUN 29 H
Creatinine 1.4 H
Glucose 135 H
Calcium 8.8
Vital Signs:
Vital Signs
Temp Pulse Resp BP Pulse Ox
36.4 C 87 18 158/74 95
12/05/23 07:30 12/05/23 07:30 12/05/23 07:30 12/05/23 07:30 12/05/23 07:30
I&O
12/04/23 12/05/23 12/06/23
06:59 06:59 06:59
Intake Total 780 / 780 500 / 500
Output Total 300 / 300 850 / 850
Balance 480 / 480 -350 / -350
Review of Systems
-
All other systems: Reviewed and negative
Physical Exam
-
General: Well Developed, Well Nourished, No Apparent Distress, Comfortable and Conversant; Negative Respiratory Distress
HEENT: Normocephalic, Atraumatic, Nose Appears Normal, Ears Appear Normal and Hearing Impaired; Negative Oxygen
Respiratory: Clear to Auscultation and Non Labored Respirations; Negative Accessory Resp Muscle Use
Cardiac: Regular Rhythm, S1/S2 and Murmur
GI: Soft, Nontender and Nondistended
Skin: Warm and Dry
Neuro: Awake, Alert, Oriented and AO x 3
Psych: Calm and Intact Judgement/Insight
Data Reviewed
-
Diagnostic Radiology: Report Reviewed by me
Labs: Labs Reviewed by me
--- NOTE | 2023-12-05 10:34 | PN.CDI ---
CDI
- -
CDI:
Physician Documentation Request
Admit Date: 12/03/23 09:23
Dear Doctor Sona,
Please review the following and provide your response in the progress notes.
Clinical Indicators:
ED, 12/02
#...she presents after mechanical fall with left hip pain.
#Patient reports that she has issues with chronic incontinence of urine.
#She says that she woke up last night was having some incontinence
#...and rodriguez to the bathroom.
#She says that some of her urine leaked on the bathroom floor and she slipped
#...and fell onto her left hip.
#She says that she did not hit her head or lose consciousness.
#She did injure her left elbow she says that she hit it on the toilet seat.
#She says that she had significant pain in the hip immediately
#...and had to crawl to the phone to call 911.
PN, 12/04
#...who presented with mechanical fall at home and left hip pain.
#Patient reported that she has chronic incontinence of urine.
#She woke up due to incontinence and rushed to the bathroom.
#Her urine leaked onto the bathroom floor and she slipped and fell onto her left hip.
#She did not hit her head or lose consciousness. She also injured her left elbow.
# Mechanical fall with Left hip fracture
#XR noted Fracture of proximal left femur neck.
Please clarify the following regarding the etiology of the left hip fracture:
Multifactorial due to low level trauma and age related osteoporosis
Traumatic fracture only
Other (please specify)
Type Fracture
Age-related With current pathological fx
Drug induced (specify drug) without current pathological fx
Idiopathic
Osteoporosis of disuse
Post traumatic
Post oophorectomy osteoporosis
Use of terms such as suspected, likely, concern for, or probable (associated with a specific diagnosis that is being evaluated, monitored, or treated as if it exists) are acceptable and can be coded in the inpatient setting, when documented at the
time of discharge.
Thank you,
Marine Tran RN BSN CCDS
CDI Specialist
please contact via tiger text
Please use your independent medical judgment in providing your response.
--- NOTE | 2023-12-05 13:09 | W.PN.ORTHO ---
Today's Communication / Plan
-
78 yo F POD 1 s/p L hip hemiarthroplasty
WBAT LLE
DVT ppx: lovenox renally dosed X 28 days daily
pain control
PT/OT
Posterior hip precautions
Med management per primary
F/u oupatient in 2-3 weeks
Subjective
.
.:
Patient resting comfortably in bed. Reports well controlled pain. She has been able to get out of bed without difficutly.
Vital Signs and Labs
.
Vital Signs and Labs:
Lab Results
12/05/23 07:00
12/05/23 07:00
Temp Pulse Resp BP Pulse Ox
98.0 F 78 18 135/66 91
12/05/23 11:25 12/05/23 11:25 12/05/23 11:25 12/05/23 11:25 12/05/23 11:25
PT 13.4 Sec (11.4-14.6) 12/03/23 07:13
INR 1.02 12/03/23 07:13
Physical Exam
-
MSK LLE
Dressing with minimal bloody drainage
Leg lengths equal
BCR distally
+ehl.fhl, ankle df/pf
SILT distally
[2023-12-05] MEDS: LIPITOR 40 MG PO (21:48)
[2023-12-05] MEDS: NORVASC 5 MG PO (21:48)
[2023-12-06] MEDS: TYLENOL PO (00:44)
[2023-12-06 02:04] VITALS: BP 160/70
[2023-12-06] MEDS: APRESOLINE 5 MG IV (03:38)
[2023-12-06] MEDS: TYLENOL 650 MG PO ×5 (03:41→20:27)
[2023-12-06 06:24] LABS: Hematocrit 30.9 % (37.0-47.0); Hemoglobin 10.9 g/dL (12.0-16.0); Mean Corp Hgb Conc. 35.3 g/dL (33.0-37.0); Mean Corpuscular Hgb 31.2 pg (27.0-31.0); Mean Corpuscular Volume 88.5 fL (81.0-99.0); Mean Platelet Volume 10.7 fL (7.4-10.4); Platelet Count 144 10^3/uL (130-400); Red Blood Cell Count 3.49 10^6/uL (4.20-5.40); Red Cell Dist. Width 13.1 % (11.5-14.5); White Blood Cell Count 10.2 10^3/uL (4.8-10.8)
[2023-12-06 06:53] LABS: Blood Urea Nitrogen 36 mg/dl (7-17); Calcium 8.3 mg/dl (8.4-10.2); Carbon Dioxide 23 mmol/L (22-30); Chloride 105 mmol/L (98-107); Estimated Creatinine Clearance 33 ml/min; Glucose 128 mg/dl (70-99); Potassium 4.1 mmol/L (3.5-5.1); Sodium 137 mmol/L (135-145); eGFR 35.23
[2023-12-06 07:30] VITALS: BP 129/69
[2023-12-06] MEDS: SENOKOT 17.2 MG PO (08:20)
[2023-12-06] MEDS: TOPROL XL 50 MG PO (08:21)
[2023-12-06] MEDS: ZOLOFT 100 MG PO (08:21)
[2023-12-06] MEDS: COLACE 100 MG PO ×2 (08:21→20:28)
[2023-12-06] MEDS: NEURONTIN 100 MG PO (08:21)
[2023-12-06] MEDS: LOVENOX 40 MG SC (08:21)
--- NOTE | 2023-12-06 10:07 | PN.CDI ---
CDI
- -
CDI:
Physician Documentation Request
Admit Date: 12/03/23 09:23
Dear Doctor Sona,
Please review the following and provide your response in the progress notes.
Clinical Indicators:
PN, 12/04
# left hip fracture, Multifactorial due to low level trauma and age related osteoporosis
#She is on baby aspirin but no other blood thinners.
#s/p L hip repair by ortho Dr Thornton on 12/03
Laboratory Tests
12/03/23 12/04/23 12/05/23
07:13 07:56 07:00
Hgb 15.0 14.6 13.3
12/06/23
04:58
Hgb 10.9 L
Based on the above, please clarify, which of the following is the most likely condition/diagnosis evaluated, monitored and/or treated?
Acute blood loss anemia
Abnormal lab value, clinically insignificant
Other(please specify)
Use of terms such as suspected, likely, concern for, or probable (associated with a specific diagnosis that is being evaluated, monitored, or treated as if it exists) are acceptable and can be coded in the inpatient setting, when documented at the
time of discharge.
Thank you,
Marine Tran RN BSN CCDS
CDI Specialist
please contact via tiger text
Please use your independent medical judgment in providing your response.
[2023-12-06 10:16] VITALS: BP 146/64
--- NOTE | 2023-12-06 11:06 | W.PN.HOSP.TC ---
Today's Communication/Plan
-
for SNF
Assessment / Plan
Assessment / Plan
HPI: 78-year-old female with past medical history of hypertension, hyperlipidemia, R breast cancer s/p mastectomy; who presented with mechanical fall at home and left hip pain. Patient reported that she has chronic incontinence of urine. She woke up
due to incontinence and rushed to the bathroom. Her urine leaked onto the bathroom floor and she slipped and fell onto her left hip. She did not hit her head or lose consciousness. She also injured her left elbow.
She denies to other symptoms.
She is on baby aspirin but no other blood thinners.
A/P:
# Mechanical fall with Left hip fracture
XR noted Fracture of proximal left femur neck.
s/p L hip repair by ortho Dr Thornton on 12/03
for SNF dispo
# Acute post op blood loss anemia
Hgb 10.9, from 13.3 yesterday
Monitor Hgb
# Reactive Leucocytosis, resolved
# HTN
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
Resumed THREADING MACHINE TENDER Norvasc
IV hydralazine PRN
# Hypercholesterolemia
THREADING MACHINE TENDER Lipitor
# CKD stage 3
SCr 1.5 today, at baseline
# R breast cancer s/p mastectomy
DVT ppx: lovenox SQ
FC
Dispo planning to SNF
Anticipated Discharge: Within 24 hours
Subjective/Interval History
-
Date of Service: December 06, 2023
Objective Data
-
Labs:
Laboratory Results
12/06/23
04:58
WBC 10.2
Hgb 10.9 L
Hct 30.9 L
Plt Count 144 D
Sodium 137
Potassium 4.1
Chloride 105
Carbon Dioxide 23
BUN 36 H
Creatinine 1.5 H
Glucose 128 H
Calcium 8.3 L
Vital Signs:
Vital Signs
Temp Pulse Resp BP Pulse Ox
36.4 C 79 18 146/64 99
12/06/23 07:30 12/06/23 10:16 12/06/23 07:30 12/06/23 10:16 12/06/23 08:00
I&O
12/05/23 12/06/23 12/07/23
06:59 06:59 06:59
Intake Total 500 / 500 1380 / 1380
Output Total 850 / 850
Balance -350 / -350 1380 / 1380
Review of Systems
-
All other systems: Reviewed and negative
Physical Exam
-
General: Well Developed, Well Nourished, No Apparent Distress, Comfortable and Conversant; Negative Respiratory Distress
HEENT: Normocephalic, Atraumatic, Nose Appears Normal, Ears Appear Normal and Hearing Impaired; Negative Oxygen
Respiratory: Clear to Auscultation and Non Labored Respirations; Negative Accessory Resp Muscle Use
Cardiac: Regular Rhythm, S1/S2 and Murmur
GI: Soft, Nontender and Nondistended
Skin: Warm and Dry
Neuro: Awake, Alert, Oriented and AO x 3
Psych: Calm and Intact Judgement/Insight
Data Reviewed
-
Diagnostic Radiology: Report Reviewed by me
Labs: Labs Reviewed by me
[2023-12-06] MEDS: MILK OF MAGNESIA 30 ML PO (11:14)
--- NOTE | 2023-12-06 12:05 | CM ---
Addendum entered by Rowan Fuentes RN 12/06/23 16:02:
IMM signed and placed on chart.
Original Note:
Reviewed the chart notes. CM spoke with [facility] school admissions representative. Bed will be available tomorrow. Attending updated. CM continues to be available to patient/family and is monitoring medical plan for needs at discharge.
Plan: Discharge to [facility] tomorrow. No precert required.
[2023-12-06 12:43] VITALS: BP 162/71; PULSE 85; O2SAT 93
[2023-12-06 14:20] VITALS: BP 122/71
[2023-12-06] MEDS: SENOKOT PO (20:33)
[2023-12-06] MEDS: NORVASC 5 MG PO (22:22)
[2023-12-06] MEDS: LIPITOR 40 MG PO (22:22)
[2023-12-06 23:05] VITALS: BP 152/68
[2023-12-07] MEDS: TYLENOL PO (00:58)
[2023-12-07] MEDS: TYLENOL 650 MG PO ×4 (05:10→15:06)
[2023-12-07 05:50] LABS: Hemoglobin 11.6 g/dL (12.0-16.0); Mean Corp Hgb Conc. 35.2 g/dL (33.0-37.0); Mean Corpuscular Hgb 31.8 pg (27.0-31.0); Mean Corpuscular Volume 90.4 fL (81.0-99.0); Mean Platelet Volume 10.9 fL (7.4-10.4); Platelet Count 158 10^3/uL (130-400); Red Blood Cell Count 3.65 10^6/uL (4.20-5.40); White Blood Cell Count 11.5 10^3/uL (4.8-10.8)
--- NOTE | 2023-12-07 05:51 | PTCARENOTE ---
While changing pt this morning Aquacell was noted to be rolled down and incision site was exposed. New dressing applied and surgeon made aware.
[2023-12-07 06:11] LABS: Blood Urea Nitrogen 38 mg/dl (7-17); Carbon Dioxide 24 mmol/L (22-30); Chloride 106 mmol/L (98-107); Estimated Creatinine Clearance 42 ml/min; Glucose 138 mg/dl (70-99); Potassium 4.9 mmol/L (3.5-5.1); Sodium 139 mmol/L (135-145); eGFR 46.05
[2023-12-07 07:21] VITALS: BP 189/85
[2023-12-07] MEDS: NEURONTIN 100 MG PO (07:22)
[2023-12-07] MEDS: ZOLOFT 100 MG PO (07:22)
[2023-12-07] MEDS: SENOKOT 17.2 MG PO (07:22)
[2023-12-07] MEDS: LOVENOX 40 MG SC (07:22)
[2023-12-07] MEDS: COLACE 100 MG PO (07:22)
[2023-12-07] MEDS: TOPROL XL 50 MG PO (07:22)
[2023-12-07 09:04] VITALS: BP 125/73
--- NOTE | 2023-12-07 11:40 | W.PN.HOSP.TC ---
Addendum entered and electronically signed by Funmilayo Magallanes MD 12/07/23 13:22:
total DC time 36 min
Original Note:
Today's Communication/Plan
-
see A/P
Assessment / Plan
Assessment / Plan
HPI: 78-year-old female with past medical history of hypertension, hyperlipidemia, R breast cancer s/p mastectomy; who presented with mechanical fall at home and left hip pain. Patient reported that she has chronic incontinence of urine. She woke up
due to incontinence and rushed to the bathroom. Her urine leaked onto the bathroom floor and she slipped and fell onto her left hip. She did not hit her head or lose consciousness. She also injured her left elbow.
She denies to other symptoms.
She is on baby aspirin but no other blood thinners.
A/P:
# Mechanical fall with Left hip fracture
XR noted Fracture of proximal left femur neck.
s/p L hip repair by ortho Dr Thornton on 12/03
DVT ppx with Lovenox SQ
for SNF dispo
# Acute post op blood loss anemia
Hgb today 11.6, was 10.9 yesterday, at 15 on admission
Monitor Hgb
# Reactive Leucocytosis
# HTN
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
Resumed FARM TECHNICIAN Norvasc
IV hydralazine PRN
# Hypercholesterolemia
FARM TECHNICIAN Lipitor
# CKD stage 3
SCr 1.2 today, at baseline
# R breast cancer s/p mastectomy
DVT ppx: lovenox SQ
FC
Dispo to SNF
Anticipated Discharge: Today
Subjective/Interval History
-
Date of Service: December 07, 2023
Objective Data
-
Labs:
Laboratory Results
12/07/23
05:04
WBC 11.5 H
Hgb 11.6 L
Hct 33.0 L
Plt Count 158
Sodium 139
Potassium 4.9
Chloride 106
Carbon Dioxide 24
BUN 38 H
Creatinine 1.2 H
Glucose 138 H
Calcium 9.0
Vital Signs:
Vital Signs
Temp Pulse Resp BP Pulse Ox
37.0 C 75 18 125/73 95
12/07/23 07:21 12/07/23 09:04 12/07/23 07:21 12/07/23 09:04 12/07/23 07:40
I&O
12/06/23 12/07/23 12/08/23
06:59 06:59 06:59
Intake Total 1380 / 1380 1040 / 1040
Balance 1380 / 1380 1040 / 1040
Review of Systems
-
All other systems: Reviewed and negative
Physical Exam
-
General: Well Developed, Well Nourished, No Apparent Distress, Comfortable and Conversant; Negative Respiratory Distress
HEENT: Normocephalic, Atraumatic, Nose Appears Normal, Ears Appear Normal and Hearing Impaired; Negative Oxygen
Respiratory: Clear to Auscultation and Non Labored Respirations; Negative Accessory Resp Muscle Use
Cardiac: Regular Rhythm, S1/S2 and Murmur
GI: Soft, Nontender and Nondistended
Skin: Warm and Dry
Neuro: Awake, Alert, Oriented and AO x 3
Psych: Calm and Intact Judgement/Insight
Data Reviewed
-
Diagnostic Radiology: Report Reviewed by me
Labs: Labs Reviewed by me
--- NOTE | 2023-12-07 12:07 | CM ---
Addendum entered by Stella Vernon 12/07/23 13:32:
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
Original Note:
Patient has been cleared for discharge today, patient has been accepted at [facility] today, patient will go by ambulance.
[place] [place]
Report [phone]
--- NOTE | 2023-12-07 13:18 | W.DCSUMMARY ---
Discharge Summary
Discharge Data
Date of Admission: 12/03/23
Date of Discharge: 12/07/23
-
Pending Results: No
Hospital Course
Principal Diagnosis:
Mechanical fall with Left hip fracture
Acute post op blood loss anemia
Chronic Diagnoses:�
Essential hypertension
Hypercholesterolemia
Chronic kidney disease stage III
Right breast cancer s/p mastectomy
Consultations:�
Orthopedic
Procedures:�
Left hip repair by ortho Dr Thornton on 12/04/23
Clinical course:�
This is a 78-year-old female with past medical history as stated above, who presented with mechanical fall at home and left hip pain.
She was admitted for left hip fracture.
Problem 1:
Mechanical fall with Left hip fracture.
Her XR noted Fracture of proximal left femur neck.
She underwent Left hip repair by ortho Dr Thornton on 12/04/23.
She can continue with low-dose Lovenox SQ for DVT prophylaxis, total 28 days.
She was discharged to SNF for PT OT evaluation.
Problem 2:
Acute post op blood loss anemia.
Her hemoglobin was at 11.6 on the day of discharge, which improved from 10.9 the day prior. Her hemoglobin was at 15 on admission.
As for the rest of her medical problems, they were stable during her hospital stay.
Discharge Plan
-
Patient Disposition: Detention/SNF
Discharge Diagnosis/Procedures: Mechanical fall with Left hip fracture status post Left hip repair by ortho Dr. Thornton on 12/04/23; Acute post op blood loss anemia (Hgb at 11 on day of discharge)
Condition: Fair
Diet: As tolerated
Activity: As tolerated
Additional Activity: Posterior hip precautions
Driving Restrictions: Not until seen by your Dr
Blood Work: CBC in 1 week with your PCP
Activity Restrictions/Additional Instructions:
F/u with ortho outpatient in 2-3 weeks
Referrals:
Ken Mckeon MD [Family Provider] - in less than 1 week
Additional Discharge Medication Instructions: continue Lovenox SQ for DVT prophylasix
Pain control with tylenol
Prescriptions:
New
acetaminophen [Tylenol] 325 mg capsule
650 mg PO Q6H PRN (Reason: Pain) Qty: 14 0RF
enoxaparin [Lovenox] 40 mg/0.4 mL syringe
40 mg SC DAILY 28 Days Qty: 11.2 0RF
Continued
multivitamin [One-A-Day Essential] 1 EACH tablet
1 ea PO DAILY
sertraline 100 MG tablet
100 mg PO DAILY
ascorbic acid (vitamin C) [Vitamin C] 500 MG capsule, extended release
1,000 mg PO HS
aspirin 81 MG tablet,chewable
81 mg PO HS
amlodipine [Norvasc] 5 MG tablet
5 mg PO HS
atorvastatin 40 mg Tablet
40 mg PO HS
gabapentin 100 mg Capsule
100 mg PO DAILY
metoprolol succinate 25 mg Tablet Extended Release 24 Hr
50 mg PO DAILY
coQ10 (ubiquinol) 200 mg Capsule
400 mg PO DAILY
Discharge Orders:
Discharge Patient (As Directed); Ordered 12/07/23
Ordered By: Funmilayo Magallanes
Discharge Date and Time
Print Language: GU[place]AL[place]
[2023-12-07 15:39] VITALS: BP 180/80
[2023-12-07] MEDS: ROXICODONE 5 MG PO (15:54)
[2023-12-07] MEDS: APRESOLINE 10 MG IV (15:58)
[2023-12-07 16:36] VITALS: BP 114/87
== END 2023-12-07 18:37 | DRG 522 ==
LOC: 2 SOUTH 09:23
PROVIDERS: ADMITTING PHYSICIAN Internal Medicine; CONSULT PHYSICIAN Orthopaedic Surgery; EMERGENCY PHYSICIAN Emergency Medicine; FAMILY PHYSICIAN Internal Medicine
PROC: 0SRS0J9 Replacement of Left Hip Joint, Femoral Surface with Synthetic Substitute, Cemented, Open Approach (ICD-10-PCS; 2023-12-04)
DX: M80.052A Age-related osteoporosis with current pathological fracture, left femur, initial encounter for fracture (principal); D62 Acute posthemorrhagic anemia; R32 Unspecified urinary incontinence; E78.00 Pure hypercholesterolemia, unspecified; I12.9 Hypertensive chronic kidney disease with stage 1 through stage 4 chronic kidney disease, or unspecified chronic kidney disease; D72.829 Elevated white blood cell count, unspecified; N18.30 Chronic kidney disease, stage 3 unspecified; S50.02XA Contusion of left elbow, initial encounter; W01.198A Fall on same level from slipping, tripping and stumbling with subsequent striking against other object, initial encounter; Y93.89 Activity, other specified; Y92.002 Bathroom of unspecified non-institutional (private) residence as the place of occurrence of the external cause; Z60.2 Problems related to living alone; Z79.82 Long term (current) use of aspirin; Z87.891 Personal history of nicotine dependence; Z85.3 Personal history of malignant neoplasm of breast; Z90.10 Acquired absence of unspecified breast and nipple; Z86.73 Personal history of transient ischemic attack (TIA), and cerebral infarction without residual deficits
CPT/HCPCS: 73080; 73502; 80048; 80053; 81003; 81015; 85025; 85027; 85610; 85730; 86850; 86900; 86901; 87077; 87086; 87186; 93005; 97162; 97166; 97530; 97535; 99285; C1713; C1776

== ENCOUNTER 2023-12-11 18:39 | Inpatient (IN) | payer MEDICARE, OTHER, SELFPAY ==
[2023-12-11 16:17] VITALS: BP 177/68; BMI 31.9
[2023-12-11] MEDS: NSS 1000 IV (16:35)
[2023-12-11 16:38] LABS: Venous Blood Gas B.E. -6.5 mmol/L (-4 to +4); Venous Blood Gas HCO3 19.7 mmol/L (22-27); Venous Blood Gas O2 Sat % 83.2 %; Venous Blood Gas pCO2 41 mmHg (35-48); Venous Blood Gas pH 7.29 (7.32-7.43); Venous Blood Gas pO2 53 mmHg (30-50)
[2023-12-11 16:45] LABS: Hematocrit 33.9 % (37.0-47.0); Hemoglobin 11.7 g/dL (12.0-16.0); Mean Corp Hgb Conc. 34.5 g/dL (33.0-37.0); Mean Corpuscular Hgb 31.2 pg (27.0-31.0); Mean Corpuscular Volume 90.4 fL (81.0-99.0); Mean Platelet Volume 10.6 fL (7.4-10.4); Platelet Count 342 10^3/uL (130-400); Red Blood Cell Count 3.75 10^6/uL (4.20-5.40)
[2023-12-11 17:00] VITALS: BP 167/69
[2023-12-11 17:10] LABS: % Basophils 0.5 % (0-2); % Eosinophils 2.4 % (0-6); % Immature Granulocytes 6.4 % (0-0.5); % Lymphocytes 7.1 % (20.5-51.1); % Monocytes 6.3 % (1.7-9.3); % Neutrophils 77.3 % (42.2-75.2); Absolute Basophils 0.1 10^3/uL (0-0.2); Absolute Eosinophils 0.4 10^3/uL (0-0.7); Absolute Immature Granulocytes 1.2 10^3/uL (0-0.05); Absolute Lymphocytes 1.3 10^3/uL (1.2-3.4); Absolute Monocytes 1.1 10^3/uL (0.1-0.6); Absolute Neutrophils 13.9 10^3/uL (1.4-6.5); Nucleated Red Blood Cells % 0 %
[2023-12-11 17:13] LABS: ALT (SGPT) 53 U/L (0-35); AST (SGOT) 49 U/L (14-36); Albumin 3.8 g/dl (3.5-5.0); Alkaline Phosphatase 88 U/L (38-126); Calcium 9.2 mg/dl (8.4-10.2); Carbon Dioxide 18 mmol/L (22-30); Chloride 98 mmol/L (98-107); Glucose 106 mg/dl (70-99); Magnesium 3.3 mg/dl (1.6-2.3); Potassium 5.4 mmol/L (3.5-5.1); Sodium 133 mmol/L (135-145); Total Bilirubin 0.8 mg/dl (0.2-1.3); Total Protein 6.7 g/dl (6.3-8.2)
[2023-12-11 17:19] LABS: Blood Urea Nitrogen 140 mg/dl (7-17); Estimated Creatinine Clearance 10 ml/min; eGFR 8.51
--- NOTE | 2023-12-11 17:27 | ED.GENMED ---
History of Present Illness
General
Chief Complaint: Abnormal Lab Value
Time Seen by Provider: 12/11/23 16:18
History of Present Illness
History of Present Illness:
78-year-old female presents the emergency department due to abnormal labs. She was admitted to [facility] 4 days ago for rehab after a left hip fracture, labs today showed a creatinine greater than 5. Patient reports fatigue with no other
complaints. She does not feel that she has been urinating adequately
Past History
Past History
ED Past Medical History: None, Cancer, HTN and Hypercholesterolemia
ED Past Surgical History: None and Gynecological
Social History
Tobacco: Non-smoker
Alcohol: None
Drug: None
Personal:
Living: with family
Employment: Retired
Review of Systems
Review of Systems
Allergies reviewed?: Yes
All Other Systems: ROS reviewed and negative except as documented in HPI and ROS
Phy Exam
Physical Exam
Physical Exam:
GEN: Well appearing, NAD, WDWN
HEENT: Oral mucosa moist, no scleral icterus
Cardiac: Regular rate
Lung: No respiratory distress, no tachypnea
Abdomen soft, tender to the suprapubic space
MSK: No gross deformity or injuries
Skin: Good color, no pallor or jaundice, no rashes
Neuro: AO x3, moves all extremities freely
Psych: Calm, cooperative
Course
Orders/Labs/Results
Orders:
Orders
12/11/23 Breakfast
Cholesterol Lowering
Cholesterol Lowering: Sodium, 2 Gram
12/11/23 16:27
Electrocardiogram (*1) Urgent
Reason for Study: QTc Monitoring
EKG- Treatment ONCE
0.9% Sodium Chloride 1000 ml [Nss] 1,000 ml IV BOLUS
12/11/23 16:31
Complete Blood Count/With Diff Urgent
Comprehensive Metabolic Panel Urgent
Magnesium Urgent
Phosphorus Urgent
Venous Blood Gas Urgent
%Oxygen/Room Air: 98
12/11/23 17:07
Steen Placement- Treatment ONCE
Reason for insertion: Acute Retention
12/11/23 17:25
Dextrose 50%-Water [Dextrose 50% Syringe] 25 grams IV NOW STA
Insulin Human Regular [Novolin R] 5 units IV NOW STA
12/11/23 17:50
Urinalysis Reflex To Culture Urgent
Date Specimen was Collected: 12/11/23
Time Specimen was Collected: 16:38
Urine Microscopic Reflex Cult Urgent
Urine Culture Urgent
SUSAN Source: U
Specimen Description:
Date Specimen was Collected: 12/11/23
Time Specimen was Collected: 16:38
12/11/23 18:00
Dextrose 5%/Water 1000 ml [D5w] 1,000 ml Sodium Bicarbonate 150 meq IV 150 mls/hr
12/11/23 18:27
Admit/Transfer Patient As Directed
Co-Sign Provider:
Level of Care: Inpatient admission
Assign to:: Telemetry
Physician / Group: timo
Diagnosis: nicolasa
Reason for Telemetry: Other
Other Reason for Telemetry: hyperkalemia
Date to Stop Telemetry: 12/13/23
Time to Stop Telemetry: 11:00
Reason for Hospitalization: urinary retention
Expected length of stay greater than two midnights?: Yes
ELOS- Estimated Length of Stay in days: 3
I certify the patient meets the requirements for IP care: Yes
PRN Pain Medication Management As Directed
May give lesser potent ordered pain med per pt: No
preference::
Protocol:: Medication orders for pain may NOT be administered in
a manner that defers to patient preference. Follow
all order instructions as written.
Contact provider if ordering parameters for pain need
to be adjusted.
12/11/23 18:29
Code Status As Directed
Resuscitation Status: Full Code
12/11/23 18:45
Bedside Glucose- Treatment ONCE
12/11/23 19:53
Acetaminophen [Tylenol] 650 mg PO Q4HPRN PRN
Bisacodyl [Dulcolax] 10 mg RECTAL [id number] PRN
Dextrose 5%/Water 1000 ml [D5w] 1,000 ml Sodium Bicarbonate 50 meq IV 150 mls/hr
Docusate W/Senna [Senokot-S] 1 tablet PO BIDPRN PRN
Polyethylene Glycol Powder [Miralax] 17 grams PO DAILYPRN PRN
12/11/23 19:53
NEPHROLOGY CONSULT Routine
Consulting Provider: Nicky Morin
Was physician already notified: Yes
Activity As Directed
Activity Level: As Tolerated
Bladder Scan As Directed
Follow Bladder Retention/Intermittent Cath Algorithm?: Yes
PRN if no void in __ hours: 6
Frequency: Per Retention Algorithm
If Bladder Scan Result >: 400
then:: Straight cath
Straight Cath As Directed
Frequency: Per Retention Algorithm
Additional Instructions: straight cath as needed per acute urinary retention algorithm for 24 hrs
Additional Instructions: for bladder scan greater than 400 mL
Vital Signs As Directed
Frequency: Per unit guidelines
Renal & Bladder US [US Renal With Bladder] Routine
Comment:
Reason For Exam: nicolasa
DX Deep Vein Thrombosis Video Routine
12/11/23 20:00
CefTRIAXone [Rocephin] 1,000 mg IV Q24H
Heparin 5,000 units SC Q12
12/11/23 22:00
Amlodipine [Norvasc] 5 mg PO HS
Aspirin Chewable [Low Strength Aspirin] 81 mg PO HS
Atorvastatin [Lipitor] 40 mg PO HS
12/12/23 06:00
Basic Metabolic Panel IN AM
Complete Blood Count/No Diff IN AM
LFT [Pckux-Habf-Gnriyvx] IN AM
Magnesium IN AM
Phos [Phosphorus] IN AM
Physical Therapy Consult [Pt Eval And Treat] IN AM
Activity Level: As Tolerated
12/12/23 08:00
Gabapentin [Neurontin] 100 mg PO DAILY
Metoprolol Xl [Toprol Xl] 50 mg PO DAILY
Sertraline HCl [Zoloft] 100 mg PO DAILY
Tamsulosin [Flomax] 0.4 mg PO DAILY
12/13/23 06:00
Basic Metabolic Panel IN AM
Complete Blood Count/No Diff IN AM
12/13/23 11:00
DC Protocol for Telemetry ONCE
12/14/23 06:00
Basic Metabolic Panel IN AM
Complete Blood Count/No Diff IN AM
12/15/23 06:00
Basic Metabolic Panel IN AM
Complete Blood Count/No Diff IN AM
12/16/23 06:00
Basic Metabolic Panel IN AM
Complete Blood Count/No Diff IN AM
Abnormal Lab Results
12/11/23 12/11/23
16:31 17:50
WBC 18.0 H 10^3/uL
(4.8-10.8)
RBC 3.75 L 10^6/uL
(4.20-5.40)
Hgb 11.7 L g/dL
(12.0-16.0)
Hct 33.9 L %
(37.0-47.0)
MCH 31.2 H pg
(27.0-31.0)
MPV 10.6 H fL
(7.4-10.4)
Abs Immat Gran (auto) 1.2 H 10^3/uL
(0-0.05)
Absolute Neuts (auto) 13.9 H 10^3/uL
(1.4-6.5)
Absolute Monos (auto) 1.1 H 10^3/uL
(0.1-0.6)
Immature Gran % 6.4 H %
(0-0.5)
Neutrophils % 77.3 H %
(42.2-75.2)
Lymphocytes % 7.1 L %
(20.5-51.1)
VBG pH 7.29 L
(7.32-7.43)
VBG pO2 53 H mmHg
(30-50)
VBG HCO3 19.7 L mmol/L
(22-27)
Sodium 133 L mmol/L
(135-145)
Potassium 5.4 H mmol/L
(3.5-5.1)
Carbon Dioxide 18 L mmol/L
(22-30)
BUN 140 H* mg/dl
(7-17)
Creatinine 4.9 H* mg/dL
(0.6-1.0)
Glucose 106 H mg/dl
(70-99)
Phosphorus 9.0 H mg/dl
(2.5-4.5)
Magnesium 3.3 H mg/dl
(1.6-2.3)
AST 49 H U/L
(14-36)
ALT 53 H U/L
(0-35)
Ur Occult Blood Reflex 4+ A
(Negative)
Leukocyte Esterase Rfl Trace A
(Negative)
Urine RBC 50-60 A /HPF
(0-2)
Urine Bacteria (Reflex) Many A
(Negative)
12/11/23 16:31
12/11/23 16:31
Vital Signs
Initial and Last Documented VS:
Initial Vital Signs
Temp Pulse Resp BP Pulse Ox
97.7 F 71 19 177/68 98
12/11/23 16:17 12/11/23 16:17 12/11/23 16:17 12/11/23 16:17 12/11/23 16:17
Last Documented Vital Signs
Temp Pulse Resp BP Pulse Ox
98.2 F 77 16 172/72 98
12/11/23 19:59 12/11/23 19:59 12/11/23 19:59 12/11/23 19:59 12/11/23 19:59
MDM/Problems Addressed
MDM/Problems Addressed:
Renal failure is likely due to obstructive uropathy in the setting of urinary retention. Steen placed with greater than 1 L urine removed. She does have leukocytosis but no signs of infection at this time to warrant antibiotics. Bicarb drip
started due to hyperkalemia and mild metabolic acidosis. Will admit for further management
*Critical Care Note
Total Time (30-74mins, 75-104mins- exclusive of procedures): Not Applicable
ED Attending Note
-
Portions of this chart may have been created with voice recognition software.� Occasional wrong word or��sound alike� substitutions may have occurred due to the inherent limitations of voice recognition software.
Discharge Plan
Departure
Patient Disposition: Admit
Date of Disposition: 12/11/23
Time of Disposition: 18:06
Admit to: Med/Surg
Presentation/result/management discussed w/ accepting MD/DO: Hospitalist
Discharge Problem:
Acute renal failure, Acute urinary retention
Interventions
Interventions:
*Risk Screen - Suicide Last Done: 12/11/23 16:17
*General Assessment Last Done: 12/11/23 16:17
*Neglect/Abuse Screening Last Done: 12/11/23 16:17
ED- Fall Risk Assessment Last Done: 12/11/23 16:25
*ED COVID-19 Vaccine History Last Done: 12/11/23 16:17
*Nursing Disposition Last Done: 12/11/23 19:46
Discharge Date and Time
Discharge Date/Time: 12/11/23 19:49
[2023-12-11 17:59] LABS: Urine Albumin Trace (Neg - Trace); Urine Bilirubin Negative (Negative); Urine Character Clear (Clear); Urine Color Yellow; Urine Glucose Negative (Negative); Urine Ketone Negative (Negative); Urine Leukocyte Trace (Negative); Urine Nitrite Negative (Negative); Urine Occult Blood 4+ (Negative); Urine Specific Gravity 1.015 (<1.030); Urine Urobilinogen Negative (Neg - 1+)
[2023-12-11 18:00] VITALS: BP 161/70
--- NOTE | 2023-12-11 18:07 | HPS.HSE ---
Family Physician
-
Family Physician: Duane Vasquez MD
Chief Complaint
-
abnormal blood work
History of Present Illness
78-year-old with medical history for hypertension, hyperlipidemia, depression anxiety presented with abnormal blood work from [facility]. Patient stated incontinence of urine every time she moves. Patient denies any abdominal discomfort, bladder
distention. Patient denies any urinary frequency, urgency, dysuria. Patient denies any headache, dizziness, syncopal episode. Patient denies any fever, chills, chest pain, short of breath. Patient denies any abdominal pain, nausea, vomiting,
diarrhea.
Upon arrival patient was noted and urinary retention. Steen placed in ER. Patient was also noted to have hyponatremia, hyperkalemia, metabolic acidosis. Patient received insulin, dextrose in ER. Admitting for further management
Medical History
Past Medical History
Past Medical History: Reports Other
Additional Past Medical History:
History of breast cancer
TIA
Arthritis
Hyperlipidemia
Sleep apnea
Past Surgical History: Reports Other
Additional Past Surgical History:
Hysterectomy
Mastectomy
Social History
Tobacco: Non-smoker
Alcohol: None
Drug: None
Living: [facility]
Family History
Family History: Not pertinent
Allergies / Home Medications
Allergies reflects when Allergies were last updated in [facility].
Home Medications with original date entered in [facility]
Allergy/Medication List:
Allergies
Allergy/AdvReac Type Severity Reaction Status Date / Time
adhesive Allergy Rash, itchy Verified 12/03/23 05:42
Home Medications
ascorbic acid (vitamin C) 500 mg capsule,extended release (Vitamin C) 1,000 mg PO HS Supplement 01/21/15
aspirin 81 mg chewable tablet 81 mg PO HS Blood Clot Prevention/Tx 01/21/15
multivitamin (One-A-Day Essential tablet) 1 ea PO DAILY Supplement 01/21/15
sertraline 100 mg tablet 100 mg PO DAILY depression/anxiety 01/21/15
amlodipine 5 mg tablet (Norvasc) 5 mg PO HS Blood Pressure 04/01/20
atorvastatin 40 mg tablet 40 mg PO HS High Cholesterol 12/03/23
coQ10 (ubiquinol) 200 mg capsule 400 mg PO DAILY Supplement 12/03/23
gabapentin 100 mg capsule 100 mg PO DAILY Pain 12/03/23
acetaminophen 325 mg capsule (Tylenol) 650 mg PO Q4HPRN PRN mild pain/fever>101 12/11/23
bisacodyl 10 mg rectal suppository (Dulcolax (bisacodyl)) 10 mg WA DAILYPRN PRN if mom is ineffective/day 5 no bm 12/11/23
magnesium hydroxide 400 mg/5 mL oral suspension (Milk of Magnesia) 15 ml PO DAILYPRN PRN if no bm on day 4 12/11/23
metoprolol succinate 50 mg tablet,extended release 24 hr 50 mg PO DAILY 12/11/23
sodium phosphates 19 gram-7 gram/118 mL enema (Fleet Enema) 118 ml WA DAILYPRN PRN if dulcolax is ineffective/day 6 no bm 12/11/23
Review of Systems
-
Constitutional: Reports No Symptoms
EENT: Reports No Symptoms
Respiratory: Reports No Symptoms
Cardiac: Reports No Symptoms
Abdomen/GI: Reports No Symptoms
: Reports No Symptoms
Musculoskeletal: Reports No Symptoms
Skin: Reports No Symptoms
Neurological: Reports No Symptoms
Endocrine: Reports No Symptoms
Hematologic/Lymphatic: Reports No Symptoms
Psych: Reports No Symptoms
Physical Exam
Vital Signs
Vital Signs
Temp Pulse Resp BP Pulse Ox
97.7 F 69 22 177/68 98
12/11/23 16:17 12/11/23 16:19 12/11/23 16:19 12/11/23 16:17 12/11/23 16:17
Physical Exam
General: Well Developed, Well Nourished and No Apparent Distress
HEENT: NormoCephalic, Moist mucous membranes and Atraumatic
Respiratory: Clear
Cardiac: S1/S2 and Regular Rhythm; No Murmur or Rub
GI: Soft, Non Tender, Non Distended and Normal Bowel Sounds; No Organomegaly
Rectal: Deferred by Provider
Musculoskeletal: No Clubbing, No Cyanosis and Other (Bilateral lower extremities edema)
Skin: No Rash
Neuro: AO x 3 and Nonfocal/grossly intact
Psych: Calm
Laboratory Results
-
12/11/23 16:31
12/11/23 16:31
Laboratory Results
Total Bilirubin 0.8 mg/dl (0.2-1.3) 12/11/23 16:31
AST 49 U/L (14-36) H 12/11/23 16:31
ALT 53 U/L (0-35) H 12/11/23 16:31
Alkaline Phosphatase 88 U/L (38-126) 12/11/23 16:31
Data Reviewed
-
Lab Data: Labs Reviewed by me
Impression/Plan
-
# Acute renal failure on CKD stage II likely from urinary retention
-Steen placed in the ER
-Creatinine 4.9, BUN 140
-trend BMP in am
-obtain renal US, bladder scan
-continue Flomax
-nephro consulted
# Hyperkalemia /hyponatremia/metabolic acidosis/elevated phosphorus/hypomagnesemia
-Phos 9.0, magnesium 3.3
-received insulin/dextrose
-At present sodium bicarb infusing
-Monitor BMP in a.m.
-Nephrology consult
# Recently left hip fracture recent left hip fracture
-status post left hip repair by Ortho on 12/03
-Aspirin continued
-Gabapentin continued for pain
# Leukocytosis likely stress reaction
-UA negative
-WBC is 18.0
-Patient is afebrile
-will cover with ceftriaxone until urine culture resulted
# Macrocytic anemia likely postop
-11.7
-No active bleeding
-Continue to monitor
# Elevated LFTs
-AST 49, ALT 53
-No complaints of abdominal pain
-Trend LFTs
# HTN
-Cont ACTIVITY SPECIALIST Toprol with hold parameter
-Resumed ACTIVITY SPECIALIST Norvasc
# Hypercholesterolemia
ACTIVITY SPECIALIST Lipitor
# Depression/anxiety
-sertraline continued
# R breast cancer s/p mastectomy
DVT ppx: Heparin subcu
FC
[2023-12-11] MEDS: SODIUM BICARBONATE 1150 MEQ IV (18:11)
[2023-12-11] MEDS: NOVOLIN R 5 UNITS IV (18:12)
[2023-12-11 18:13] LABS: Urine Bacteria Many (Negative); Urine Red Blood Cell 50-60 /HPF (0-2); Urine White Cell 0-2 /HPF (0-5)
[2023-12-11] MEDS: DEXTROSE 50% SYRINGE 25 GRAMS IV (18:14)
--- NOTE | 2023-12-11 18:43 | W.PN.UPDATE ---
Update Note
Progress Note Update
HPI: 78-year-old with PMH hypertension, hyperlipidemia, depression/anxiety; returned from SNF from recent L hip ORIF due to abnormal blood work.
Patient c/o urinary incontinence.
She was noted to have urinary retention in the ED and Steen was placed.
A/P:
# Acute renal failure on CKD stage II likely from acute urinary retention
# Mild Hyperkalemia and metabolic acidosis
Creatinine 4.9 on admission, baseline SCr 1.2, cont to trend SCr
Steen placed in the ER
Cont bladder scan
Cont bicarb drip
Check renal US
Start Flomax
Renal consult
# Recently left hip fracture s/p left hip repair by Ortho on 12/03
Would use HSQ For DVT ppx
Tylenol for pain control
# Leukocytosis likely stress reaction, although cannot r/o UTI
Follow urine Cx
Start empiric ceftriaxone for now
# Elevated LFTs, likely reactive
AST 49, ALT 53
Trend LFTs
# HTN
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
Resumed PIPE PRODUCTION WORKER Norvasc
# Hypercholesterolemia
PIPE PRODUCTION WORKER Lipitor
# Depression/anxiety
sertraline continued
# R breast cancer s/p mastectomy
DVT ppx: Heparin subcu
FC
[2023-12-11 18:58] LABS: Glucose - Point of Care 165 mg/dl (70-99)
[2023-12-11 19:00] VITALS: BP 158/66
[2023-12-11 19:59] VITALS: BP 172/72
[2023-12-11] MEDS: HEPARIN 5000 UNITS SC (20:50)
[2023-12-11] MEDS: NORVASC 5 MG PO (20:50)
[2023-12-11] MEDS: ROCEPHIN 1000 MG IV (20:51)
[2023-12-11] MEDS: STERILE WATER FOR INJECTION 10 ML IV (20:51)
[2023-12-11] MEDS: LIPITOR 40 MG PO (22:34)
[2023-12-11] MEDS: LOW STRENGTH ASPIRIN 81 MG PO (22:34)
[2023-12-11 23:44] VITALS: BP 155/62
[2023-12-12] VITALS (8 sets, daily range): BP systolic 121–162; BP diastolic 52–73; PULSE 71–73; O2SAT 97; BMI 29.9
[2023-12-12] MEDS: SODIUM BICARBONATE 1150 MEQ IV (02:00)
--- NOTE | 2023-12-12 06:15 | DOWNTIME ---
There was a [employer] Client Pattern Shop Supervisor Downtime on 12/12/2023 from 0100 to 12/12/2023 at 0255. Downtime documentation of patient's care, including medication administrations, has been reconciled in the electronic record per guidelines. Refer to the
patient's paper chart under the miscellaneous tab to see printed paper medication records and downtime forms.
[2023-12-12 07:25] LABS: Hematocrit 28.7 % (37.0-47.0); Hemoglobin 10.2 g/dL (12.0-16.0); Mean Corp Hgb Conc. 35.5 g/dL (33.0-37.0); Mean Corpuscular Hgb 30.8 pg (27.0-31.0); Mean Corpuscular Volume 86.7 fL (81.0-99.0); Mean Platelet Volume 10.3 fL (7.4-10.4); Platelet Count 312 10^3/uL (130-400); Red Blood Cell Count 3.31 10^6/uL (4.20-5.40); Red Cell Dist. Width 12.7 % (11.5-14.5); White Blood Cell Count 12.4 10^3/uL (4.8-10.8)
[2023-12-12 07:57] LABS: ALT (SGPT) 40 U/L (0-35); AST (SGOT) 36 U/L (14-36); Albumin 3.2 g/dl (3.5-5.0); Alkaline Phosphatase 74 U/L (38-126); Blood Urea Nitrogen 118 mg/dl (7-17); Calcium 8.9 mg/dl (8.4-10.2); Carbon Dioxide 26 mmol/L (22-30); Chloride 102 mmol/L (98-107); Direct Bilirubin 0.3 mg/dl (0.0-0.4); Estimated Creatinine Clearance 14 ml/min; Glucose 119 mg/dl (70-99); Magnesium 2.9 mg/dl (1.6-2.3); Potassium 4.6 mmol/L (3.5-5.1); Sodium 139 mmol/L (135-145); Total Bilirubin 0.5 mg/dl (0.2-1.3); Total Protein 5.8 g/dl (6.3-8.2); eGFR 12.75
[2023-12-12] MEDS: FLOMAX 0.4 MG PO (08:13)
[2023-12-12] MEDS: NEURONTIN 100 MG PO (08:13)
[2023-12-12] MEDS: HEPARIN 5000 UNITS SC ×2 (08:13→21:58)
[2023-12-12] MEDS: ZOLOFT 100 MG PO (08:13)
[2023-12-12] MEDS: TOPROL XL 50 MG PO (08:14)
--- NOTE | 2023-12-12 09:07 | W.PN.HOSP.TC ---
Today's Communication/Plan
-
see A/P
Assessment / Plan
Assessment / Plan
HPI: 78-year-old with PMH hypertension, hyperlipidemia, depression/anxiety; returned from SNF from recent L hip ORIF due to abnormal blood work.
Patient c/o urinary incontinence.
She was noted to have urinary retention in the ED and Negro was placed.
A/P:
# Acute renal failure on CKD stage II likely from acute urinary retention
# Mild Hyperkalemia and metabolic acidosis on admission
Creatinine 4.9 on admission -> 3.5 today, baseline SCr 1.2, cont to trend SCr
Negro placed in the ER, cont negro
switch bicarb drip to NSS with resolution of metabolic acidosis
Check renal US
Started Flomax
Renal consulted
# Recently left hip fracture s/p left hip repair by Ortho on 12/03
HSQ For DVT ppx
Tylenol for pain control
# Leukocytosis likely stress reaction, although cannot r/o UTI
Follow urine Cx
Started empiric ceftriaxone for now
# Elevated LFTs, likely reactive , improving
Trend LFTs
# HTN
Cont INFORMATION SERVICES ASSISTANT Toprol and Norvasc
# Hypercholesterolemia
INFORMATION SERVICES ASSISTANT Lipitor
# Depression/anxiety
sertraline continued
# R breast cancer s/p mastectomy
DVT ppx: Heparin subcu
FC
Dispo: PT OT eval
DW RN
Anticipated Discharge: 24 - 48 hours
Subjective/Interval History
-
Date of Service: December 12, 2023
Objective Data
-
Labs:
Laboratory Results
12/12/23
06:57
WBC 12.4 H
Hgb 10.2 L
Hct 28.7 L
Plt Count 312
Sodium 139
Potassium 4.6
Chloride 102
Carbon Dioxide 26
BUN 118 H*
Creatinine 3.5 H
Glucose 119 H
Calcium 8.9
Total Bilirubin 0.5
AST 36
ALT 40 H
Alkaline Phosphatase 74
Vital Signs:
Vital Signs
Temp Pulse Resp BP Pulse Ox
36.6 C 66 18 159/63 96
12/12/23 07:00 12/12/23 08:14 12/12/23 07:00 12/12/23 08:14 12/12/23 07:00
I&O
12/11/23 12/12/23 12/13/23
06:59 06:59 06:59
Intake Total 480 / 480
Output Total 2250 / 2250
Balance -1770 / -1770
Review of Systems
-
All other systems: Reviewed and negative
Physical Exam
-
General: Well Developed, Well Nourished, No Apparent Distress, Comfortable and Conversant; Negative Respiratory Distress
HEENT: Normocephalic, Atraumatic, Nose Appears Normal, Ears Appear Normal and Hearing Impaired; Negative Oxygen
Respiratory: Clear to Auscultation and Non Labored Respirations; Negative Accessory Resp Muscle Use
Cardiac: Regular Rhythm, S1/S2 and Murmur
GI: Soft, Nontender and Nondistended
Musculoskeletal: Other (L hip eleni appear intact )
Skin: Warm and Dry
Neuro: Awake, Alert, Oriented and AO x 3
Psych: Calm and Intact Judgement/Insight
Data Reviewed
-
Labs: Labs Reviewed by me
[2023-12-12] MEDS: NSS 1000 IV (09:23)
--- NOTE | 2023-12-12 11:21 | CM ---
Patient seen bedside, initial assessment completed. Patient came from [facility]. Patient otherwise resides independently in an apartment at the [facility], no steps to enter. Patient PCP Duane Vasquez (while at [facility]), otherwise Ken
Mike, pharmacy used [facility]. Patient confirms she has prescription coverage through her insurance. Patient unsure if she is paying for a bed hold at [facility], [facility] to clarify. Patient would [facility] to [facility] if
able. CM will continue to follow for all discharge planning needs.
Plan; watch PT/OT evals for SNF recommendation, patient goal to return to [facility], clarifying if patient is on bed hold.
--- NOTE | 2023-12-12 13:16 | W.CON.NEPH ---
Consultation
-
Date/Time Consultation Requested: December 12, 2023 7 AM
Date/Time Consultation Performed: December 12, 2023 11 AM
Requesting Provider: Dr. Magallanes
Performing Provider: Dr. Weems
Reason for Consultation: Acute kidney injury
Medical History
-
Chief Complaint: Acute kidney injury
History of Present Illness:
This is a 78-year-old female who resides at [facility] who was there for rehab after a left hip fracture. She had routine blood work drawn which had shown a creatinine greater than 5 and BUN 131 and was sent to the emergency room for evaluation. She
does report some urinary incontinence but no worsening abdominal pain or urgency. Blood work was significant for a creatinine of 4.9 of her baseline of 1.2. She also had hyperkalemia with a potassium of 5.4 and significant azotemia with a BUN of
140. She also had mild metabolic acidosis. Steen catheter was placed with over 2 L of urine output. She also has hypertension controlled with a multidrug regimen. She has hyperlipidemia controlled with statin therapy.
Past Medical History
History of breast cancer
TIA
Arthritis
Hyperlipidemia
Sleep apnea
Hysterectomy
Mastectomy
Hypertension
Social History
Tobacco: Non-Smoker
Alcohol: None
Family History
Family History: Not Pertinent
Allergies / Home Medications
Allergy/AdvReac Type Severity Reaction Status Date / Time
adhesive Allergy Rash, itchy Verified 12/03/23 05:42
�Medication �Instructions �Recorded �Confirmed �Type
ascorbic acid (vitamin C) 500 mg 1,000 mg PO HS Supplement 01/21/15 12/11/23 History
capsule,extended release (Vitamin
C)
aspirin 81 mg chewable tablet 81 mg PO HS Blood Clot 01/21/15 12/11/23 History
Prevention/Tx
multivitamin (One-A-Day Essential 1 ea PO DAILY Supplement 01/21/15 12/11/23 History
tablet)
sertraline 100 mg tablet 100 mg PO DAILY depression/anxiety 01/21/15 12/11/23 History
amlodipine 5 mg tablet (Norvasc) 5 mg PO HS Blood Pressure 04/01/20 12/11/23 History
atorvastatin 40 mg tablet 40 mg PO HS High Cholesterol 12/03/23 12/11/23 History
coQ10 (ubiquinol) 200 mg capsule 400 mg PO DAILY Supplement 12/03/23 12/11/23 History
gabapentin 100 mg capsule 100 mg PO DAILY Pain 12/03/23 12/11/23 History
acetaminophen 325 mg capsule 650 mg PO Q4HPRN PRN mild 12/11/23 12/11/23 History
(Tylenol) pain/fever>101
bisacodyl 10 mg rectal suppository 10 mg WV DAILYPRN PRN if mom is 12/11/23 12/11/23 History
(Dulcolax (bisacodyl)) ineffective/day 5 no bm
magnesium hydroxide 400 mg/5 mL 15 ml PO DAILYPRN PRN if no bm on 12/11/23 12/11/23 History
oral suspension (Milk of Magnesia) day 4
metoprolol succinate 50 mg 50 mg PO DAILY Blood Pressure 12/11/23 12/11/23 History
tablet,extended release 24 hr
sodium phosphates 19 gram-7 118 ml WV DAILYPRN PRN if dulcolax 12/11/23 12/11/23 History
gram/118 mL enema (Fleet Enema) is ineffective/day 6 no bm
Review of Systems
-
No chest pain or shortness of breath. No abdominal pain.
All other systems: Negative unless noted
Physical Exam
Vital Signs
Vital Signs
Temp Pulse Resp BP Pulse Ox
98.7 F 72 18 133/57 97
12/12/23 11:00 12/12/23 11:00 12/12/23 11:00 12/12/23 11:00 12/12/23 11:00
Lab Results
WBC 12.4 10^3/uL (4.8-10.8) H 12/12/23 06:57
RBC 3.31 10^6/uL (4.20-5.40) L 12/12/23 06:57
Hgb 10.2 g/dL (12.0-16.0) L 12/12/23 06:57
Hct 28.7 % (37.0-47.0) L 12/12/23 06:57
Plt Count 312 10^3/uL (130-400) 12/12/23 06:57
Sodium 139 mmol/L (135-145) 12/12/23 06:57
Potassium 4.6 mmol/L (3.5-5.1) 12/12/23 06:57
Chloride 102 mmol/L (98-107) 12/12/23 06:57
Carbon Dioxide 26 mmol/L (22-30) 12/12/23 06:57
BUN 118 mg/dl (7-17) H* 12/12/23 06:57
Creatinine 3.5 mg/dL (0.6-1.0) H 12/12/23 06:57
eGFR 12.75 12/12/23 06:57
Glucose 119 mg/dl (70-99) H 12/12/23 06:57
Calcium 8.9 mg/dl (8.4-10.2) 12/12/23 06:57
Phosphorus 7.0 mg/dl (2.5-4.5) H 12/12/23 06:57
Albumin 3.2 g/dl (3.5-5.0) L 12/12/23 06:57
Physical Exam
Patient is awake alert oriented and in no distress. Mood and affect were pleasant, insight and judgment were good. Pupils are equal round and reactive to light, extraocular movements are intact, sclera were anicteric. Hearing was normal, ears and
nose are intact. Oropharynx was clear. Neck was supple with trachea midline and no thyromegaly. Heart was regular rate and rhythm without rubs. Lower extremities without edema. Lungs were clear to auscultation bilaterally and with normal
excursion. Abdomen was soft, nontender, with normal active bowel sounds, and no hepatosplenomegaly. Skin was without rash and with normal turgor.
Data Reviewed
-
Ultrasound: Report Reviewed by me (Report pending)
Medical Tests (Nuc Med, Echo etc): Image Personally Visualized and interpreted (EKG on December 11, 2023 by my reading shows normal sinus rhythm, right bundle branch block)
Labs: Labs Reviewed by me (Sodium 139, potassium 4.6, BUN 118, creatinine 3.5, phosphorus 7.0, magnesium 2.9, hemoglobin 10.2, WBC 12.4)
Old Records: Reviewed (On December 11, 2023 creatinine 5.3, potassium 5.9, BUN 131)
Assessment/Plan
-
Assessment
Urinary retention
JASWINDER
Hyperkalemia
Metabolic acidosis
Hyperphosphatemia
Hypertension
Plan
May cap IVF
Follow BMP
Maintain Steen catheter
Tamsulosin
[2023-12-12] MEDS: ROCEPHIN 1000 MG IV (22:00)
[2023-12-12] MEDS: NORVASC 5 MG PO (22:01)
[2023-12-12] MEDS: STERILE WATER FOR INJECTION 10 ML IV (22:01)
[2023-12-12] MEDS: LIPITOR 40 MG PO (22:02)
[2023-12-12] MEDS: LOW STRENGTH ASPIRIN 81 MG PO (22:02)
[2023-12-13] MEDS: NSS 1000 IV ×2 (01:56→13:09)
[2023-12-13 03:00] VITALS: BP 159/66
[2023-12-13 07:36] VITALS: BP 161/67
[2023-12-13] MEDS: FLOMAX 0.4 MG PO (08:17)
[2023-12-13] MEDS: ZOLOFT 100 MG PO (08:17)
[2023-12-13] MEDS: NEURONTIN 100 MG PO (08:17)
[2023-12-13] MEDS: HEPARIN 5000 UNITS SC ×2 (08:17→21:16)
[2023-12-13] MEDS: TOPROL XL 50 MG PO (08:17)
[2023-12-13 10:40] LABS: Hematocrit 29.2 % (37.0-47.0); Hemoglobin 9.9 g/dL (12.0-16.0); Mean Corp Hgb Conc. 33.9 g/dL (33.0-37.0); Mean Corpuscular Hgb 30.4 pg (27.0-31.0); Mean Corpuscular Volume 89.6 fL (81.0-99.0); Mean Platelet Volume 11.2 fL (7.4-10.4); Platelet Count 287 10^3/uL (130-400); Red Blood Cell Count 3.26 10^6/uL (4.20-5.40); Red Cell Dist. Width 12.9 % (11.5-14.5); White Blood Cell Count 13.2 10^3/uL (4.8-10.8)
[2023-12-13 11:12] LABS: ALT (SGPT) 40 U/L (0-35); AST (SGOT) 40 U/L (14-36); Alkaline Phosphatase 75 U/L (38-126); Blood Urea Nitrogen 87 mg/dl (7-17); Calcium 8.8 mg/dl (8.4-10.2); Carbon Dioxide 29 mmol/L (22-30); Chloride 104 mmol/L (98-107); Direct Bilirubin 0.2 mg/dl (0.0-0.4); Estimated Creatinine Clearance 24 ml/min; Glucose 105 mg/dl (70-99); Potassium 4.7 mmol/L (3.5-5.1); Sodium 141 mmol/L (135-145); Total Bilirubin 0.5 mg/dl (0.2-1.3); Total Protein 5.6 g/dl (6.3-8.2); eGFR 23.53
--- NOTE | 2023-12-13 11:23 | CM ---
Addendum entered by Merlyn Dye 12/13/23 11:41:
Plan: Per Attending, patient should be stable for DC tomorrow; Patient is agreeable to return to [facility]
Per Delilah Steiner, CM will need to call in the morning for bed availability
Original Note:
Spoke w/ Delilah Steiner at [facility]; patient does not have a Bed on Hold
[2023-12-13 11:24] VITALS: BP 132/62
--- NOTE | 2023-12-13 12:56 | W.PN.NEPH.PH ---
Today's Communication / Plan
-
follow BMP
Assessment/Plan
-
Assessment
Urinary retention
JASWINDER
Hyperkalemia
Metabolic acidosis
Hyperphosphatemia
Hypertension
Plan
keep I/O close to even/slightly neg
Follow BMP
Maintain Steen catheter
Tamsulosin
-
-
Date of Service: December 13, 2023
CC / HPI / ROS
-
Chief Complaint:
JASWINDER
History of Present Illness:
JASWINDER/Cr down to 2.[address] for retention
BP stable
excellent Urine output
Review of Systems:
no CP/SOB
Labs
-
Labs:
WBC 13.2 10^3/uL (4.8-10.8) H 12/13/23 09:58
RBC 3.26 10^6/uL (4.20-5.40) L 12/13/23 09:58
Hgb 9.9 g/dL (12.0-16.0) L 12/13/23 09:58
Hct 29.2 % (37.0-47.0) L 12/13/23 09:58
Plt Count 287 10^3/uL (130-400) 12/13/23 09:58
Sodium 141 mmol/L (135-145) 12/13/23 09:58
Potassium 4.7 mmol/L (3.5-5.1) 12/13/23 09:58
Chloride 104 mmol/L (98-107) 12/13/23 09:58
Carbon Dioxide 29 mmol/L (22-30) 12/13/23 09:58
BUN 87 mg/dl (7-17) H 12/13/23 09:58
Creatinine 2.1 mg/dL (0.6-1.0) H 07/18/24 09:58
eGFR 23.53 12/13/23 09:58
Glucose 105 mg/dl (70-99) H 12/13/23 09:58
Calcium 8.8 mg/dl (8.4-10.2) 12/13/23 09:58
Phosphorus 7.0 mg/dl (2.5-4.5) H 12/12/23 06:57
Albumin 3.0 g/dl (3.5-5.0) L 12/13/23 09:58
Physical Exam
-
Vital Signs:
Vital Signs
Temp Pulse Resp BP Pulse Ox
98.7 F 72 16 132/62 98
12/13/23 11:24 12/13/23 11:24 12/13/23 11:24 12/13/23 11:24 12/13/23 11:24
Cardiovascular:: Regular rate and rhythm
Respiratory:: Bilateral: CTA
Lung Excursion:: Normal
Abdomen:: Nontender and Soft
Bowel Sounds:: Normal
Extremity Edema:: None: Bilateral:
--- NOTE | 2023-12-13 14:37 | W.PN.HOSP.TC ---
Today's Communication/Plan
-
f/u renal function
d/c planning for snf rehab
Assessment / Plan
Assessment / Plan
HPI: 78-year-old with PMH hypertension, hyperlipidemia, depression/anxiety; returned from SNF from recent L hip ORIF due to abnormal blood work.
Patient c/o urinary incontinence.
She was noted to have urinary retention in the ED and Negro was placed.
A/P:
# Acute renal failure on CKD stage II likely from acute urinary retention
# Mild Hyperkalemia and metabolic acidosis - resolved
Negro placed in the ER, cont negro
switch bicarb drip to NSS with resolution of metabolic acidosis
Renal US showing hydronephrosis, bilateral nonobstructive nephrolithiasis
Started Flomax
Cr 5.3, trending down 2.1 today. continue follow
# Recently left hip fracture s/p left hip repair by Ortho on 12/03
HSQ For DVT ppx
Tylenol for pain control
# Leukocytosis likely stress reaction
-urine culture from previous visit growing citrobacter
-no reported dysuria
-on empiric rocephin, day 2 today, will stop at discharge.
# Elevated LFTs, likely reactive , improving
Trend LFTs
# Essential HTN
Cont THEORETICAL PHYSICIST Toprol and Norvasc
# Hypercholesterolemia
THEORETICAL PHYSICIST Lipitor
# Depression/anxiety
sertraline continued
# R breast cancer s/p mastectomy
DVT ppx: Heparin subcu
Anticipated Discharge: 24 - 48 hours
Subjective/Interval History
-
Date of Service: December 13, 2023
no abd pain
afebrile overnight
Objective Data
-
Labs:
Laboratory Results
12/13/23
09:58
WBC 13.2 H
Hgb 9.9 L
Hct 29.2 L
Plt Count 287
Sodium 141
Potassium 4.7
Chloride 104
Carbon Dioxide 29
BUN 87 H
Creatinine 2.1 H
Glucose 105 H
Calcium 8.8
Total Bilirubin 0.5
AST 40 H
ALT 40 H
Alkaline Phosphatase 75
Vital Signs:
Vital Signs
Temp Pulse Resp BP Pulse Ox
98.7 F 72 16 132/62 98
12/13/23 11:24 12/13/23 11:24 12/13/23 11:24 12/13/23 11:24 12/13/23 11:24
I&O
12/12/23 12/13/23 12/14/23
06:59 06:59 06:59
Intake Total 480 / 480 2400 / 2400
Output Total 2250 / 2250 3100 / 3100
Balance -1770 / -1770 -700 / -700
Review of Systems
-
Respiratory: Reports No Symptoms
Cardiac: Reports No Symptoms
Abdomen/GI: Reports No Symptoms
Physical Exam
-
General: Comfortable; Negative Respiratory Distress
HEENT: Negative Oxygen
Respiratory: Clear to Auscultation and Non Labored Respirations; Negative Accessory Resp Muscle Use
Cardiac: Regular Rhythm, S1/S2 and Murmur
GI: Soft, Nontender and Nondistended
Genito-urinary: Negro (clear urine)
Musculoskeletal: Other (L hip eleni appear intact )
Skin: Warm and Dry
Neuro: Awake, Alert, Oriented and AO x 3
Psych: Calm and Intact Judgement/Insight
[2023-12-13 15:29] VITALS: BP 143/65
[2023-12-13 16:11] VITALS: BP 145/63; PULSE 78; O2SAT 95
[2023-12-13] MEDS: LOW STRENGTH ASPIRIN 81 MG PO (21:16)
[2023-12-13] MEDS: STERILE WATER FOR INJECTION 10 ML IV (21:17)
[2023-12-13] MEDS: NORVASC 5 MG PO (21:24)
[2023-12-13] MEDS: LIPITOR 40 MG PO (21:31)
[2023-12-13] MEDS: ROCEPHIN 1000 MG IV (21:31)
[2023-12-13 23:18] VITALS: BP 149/57
[2023-12-14] VITALS (7 sets, daily range): BP systolic 122–178; BP diastolic 62–77; PULSE 72
[2023-12-14] MEDS: NSS 1000 IV (01:21)
[2023-12-14] MEDS: HEPARIN 5000 UNITS SC ×2 (07:46→20:25)
[2023-12-14] MEDS: FLOMAX 0.4 MG PO (07:46)
[2023-12-14] MEDS: ZOLOFT 100 MG PO (07:47)
[2023-12-14] MEDS: NEURONTIN 100 MG PO (07:47)
[2023-12-14] MEDS: TOPROL XL 50 MG PO (07:47)
[2023-12-14 07:54] LABS: Hematocrit 30.3 % (37.0-47.0); Hemoglobin 10.4 g/dL (12.0-16.0); Mean Corp Hgb Conc. 34.3 g/dL (33.0-37.0); Mean Corpuscular Hgb 31.5 pg (27.0-31.0); Mean Corpuscular Volume 91.8 fL (81.0-99.0); Mean Platelet Volume 10.3 fL (7.4-10.4); Platelet Count 355 10^3/uL (130-400); Red Cell Dist. Width 12.7 % (11.5-14.5); White Blood Cell Count 12.3 10^3/uL (4.8-10.8)
[2023-12-14 07:59] LABS: Blood Urea Nitrogen 66 mg/dl (7-17); Calcium 9.2 mg/dl (8.4-10.2); Carbon Dioxide 25 mmol/L (22-30); Chloride 109 mmol/L (98-107); Estimated Creatinine Clearance 33 ml/min; Glucose 103 mg/dl (70-99); Potassium 4.8 mmol/L (3.5-5.1); Sodium 141 mmol/L (135-145); eGFR 35.23
--- NOTE | 2023-12-14 09:44 | W.PN.NEPH.PH ---
Today's Communication / Plan
-
- changed fluids to half normal
- sign off
Assessment/Plan
-
Assessment
Urinary retention
JASWINDER
Hyperkalemia
Metabolic acidosis
Hyperphosphatemia
Hypertension
Plan
keep I/O close to even/slightly neg, changed fluids to 1/2 NS for post obstructive diuresis. okay to stop when patient is more net even
Follow BMP
Maintain Steen catheter
Tamsulosin
Cr almost back to baseline
Nephrology will sign off at this time. Please call us back if any further questions
-
-
Date of Service: December 14, 2023
CC / HPI / ROS
-
Chief Complaint:
JASWINDER
History of Present Illness:
JASWINDER/Cr down to 1.[address] for retention
BP stable
excellent Urine output
Review of Systems:
no CP/SOB
Labs
-
Labs:
WBC 12.3 10^3/uL (4.8-10.8) H 12/14/23 06:55
RBC 3.30 10^6/uL (4.20-5.40) L 12/14/23 06:55
Hgb 10.4 g/dL (12.0-16.0) L 12/14/23 06:55
Hct 30.3 % (37.0-47.0) L 12/14/23 06:55
Plt Count 355 10^3/uL (130-400) D 12/14/23 06:55
Sodium 141 mmol/L (135-145) 12/14/23 06:55
Potassium 4.8 mmol/L (3.5-5.1) 12/14/23 06:55
Chloride 109 mmol/L (98-107) H 12/14/23 06:55
Carbon Dioxide 25 mmol/L (22-30) 12/14/23 06:55
BUN 66 mg/dl (7-17) H 12/14/23 06:55
Creatinine 1.5 mg/dL (0.6-1.0) H 12/14/23 06:55
eGFR 35.23 12/14/23 06:55
Glucose 103 mg/dl (70-99) H 12/14/23 06:55
Calcium 9.2 mg/dl (8.4-10.2) 12/14/23 06:55
Phosphorus 7.0 mg/dl (2.5-4.5) H 12/12/23 06:57
Albumin 3.0 g/dl (3.5-5.0) L 12/13/23 09:58
Physical Exam
-
Vital Signs:
Vital Signs
Temp Pulse Resp BP Pulse Ox
97.9 F 71 17 172/73 98
12/14/23 07:36 12/14/23 07:36 12/14/23 07:36 12/14/23 07:36 12/14/23 07:36
Cardiovascular:: Regular rate and rhythm
Respiratory:: Bilateral: CTA
Lung Excursion:: Normal
Abdomen:: Nontender and Soft
Bowel Sounds:: Normal
Extremity Edema:: +1: Bilateral:
Steen Catheter: Yes
[2023-12-14] MEDS: 0.45%NACL 1000 IV (10:08)
--- NOTE | 2023-12-14 10:23 | W.PN.HOSP.TC ---
Addendum entered and electronically signed by Jae Gleason MD 12/14/23 15:31:
[facility] unable to accept today due to computer outage. Discharge cancelled.
Original Note:
Today's Communication/Plan
-
see note
discharge planning for [facility]
Assessment / Plan
Assessment / Plan
HPI: 78-year-old with PMH hypertension, hyperlipidemia, depression/anxiety; returned from SNF from recent L hip ORIF due to abnormal blood work.
Patient c/o urinary incontinence.
She was noted to have urinary retention in the ED and Steen was placed.
A/P:
# Acute renal failure on CKD stage II likely from acute urinary retention
# Mild Hyperkalemia and metabolic acidosis - resolved
Steen placed in the ER
switch bicarb drip to NSS with resolution of metabolic acidosis
Renal US showing hydronephrosis, bilateral nonobstructive nephrolithiasis
Started Flomax
Cr 5.3 at admit, trending down and 1.5 today, close to baseline
TOV in rehab with reinsertion and urology f/u if fails
f/u BMP script provided
# Recently left hip fracture s/p left hip repair by Ortho on 12/03
HSQ For DVT ppx
Tylenol for pain control
# Leukocytosis likely stress reaction
-urine culture from previous visit growing citrobacter
-no reported dysuria
-on empiric rocephin, day 2 today, will stop at discharge.
# Elevated LFTs, likely reactive , improving
Trend LFTs
# Essential HTN
Cont CHIEF CONTROLLER TOWER Toprol and Norvasc
# Hypercholesterolemia
CHIEF CONTROLLER TOWER Lipitor
# Depression/anxiety
sertraline continued
# R breast cancer s/p mastectomy
DVT ppx: Heparin subcu
Anticipated Discharge: Today
Subjective/Interval History
-
Date of Service: December 14, 2023
no abd pain/n/v
Objective Data
-
Labs:
Laboratory Results
12/14/23
06:55
WBC 12.3 H
Hgb 10.4 L
Hct 30.3 L
Plt Count 355 D
Sodium 141
Potassium 4.8
Chloride 109 H
Carbon Dioxide 25
BUN 66 H
Creatinine 1.5 H
Glucose 103 H
Calcium 9.2
Vital Signs:
Vital Signs
Temp Pulse Resp BP Pulse Ox
97.9 F 71 17 172/73 98
12/14/23 07:36 12/14/23 07:36 12/14/23 07:36 12/14/23 07:36 12/14/23 07:36
I&O
12/13/23 12/14/23 12/15/23
06:59 06:59 06:59
Intake Total 2400 / 2400 660 / 660
Output Total 3100 / 3100 3975 / 3975
Balance -700 / -700 -3315 / -3315
Review of Systems
-
Respiratory: Reports No Symptoms
Cardiac: Reports No Symptoms
Abdomen/GI: Reports No Symptoms
Physical Exam
-
General: Comfortable; Negative Respiratory Distress
HEENT: Negative Oxygen
Respiratory: Clear to Auscultation and Non Labored Respirations; Negative Accessory Resp Muscle Use
Cardiac: Regular Rhythm, S1/S2 and Murmur
GI: Soft, Nontender and Nondistended
Genito-urinary: Steen (clear urine)
Musculoskeletal: Other (L hip eleni appear intact )
Skin: Warm and Dry
Neuro: Awake, Alert, Oriented and AO x 3
Psych: Calm and Intact Judgement/Insight
--- NOTE | 2023-12-14 14:35 | CM ---
Plan: return to [facility] when bed is available
[2023-12-14] MEDS: APRESOLINE 10 MG IV (17:34)
[2023-12-14] MEDS: PROCARDIA XL (EXTENDED RELEASE) 30 MG PO (20:25)
[2023-12-14] MEDS: LIPITOR 40 MG PO (20:39)
[2023-12-14] MEDS: LOW STRENGTH ASPIRIN 81 MG PO (20:40)
[2023-12-14] MEDS: 0.45%NACL IV (23:14)
[2023-12-15 07:00] VITALS: BP 170/75
[2023-12-15] MEDS: PROCARDIA XL (EXTENDED RELEASE) 30 MG PO ×2 (08:06→21:18)
[2023-12-15] MEDS: TOPROL XL 50 MG PO (08:07)
[2023-12-15] MEDS: FLOMAX 0.4 MG PO (08:07)
[2023-12-15] MEDS: ZOLOFT 100 MG PO (08:09)
[2023-12-15] MEDS: HEPARIN 5000 UNITS SC ×2 (08:10→21:18)
[2023-12-15] MEDS: NEURONTIN 100 MG PO (08:10)
--- NOTE | 2023-12-15 08:43 | W.PN.HOSP.TC ---
Today's Communication/Plan
-
d/c
Assessment / Plan
Assessment / Plan
78-year-old with PMH hypertension, hyperlipidemia, depression/anxiety; returned from SNF from recent L hip ORIF due to abnormal blood work. Patient c/o urinary incontinence. She was noted to have urinary retention in the ED and Steen was placed.
Gen: NAD, Awake and alert
Eyes: EOMI, PERRLA, no scleral icterus.
Neck: supple.
CV: RRR, +S1/S2, no m/r/g.
Resp: CTAB, no rales, wheezes, or rhonchi.
Abd: +BS, soft, NT, ND
Skin: No rashes.
Neuro: CN 2-12 intact, non-focal.
Psych: Normal mood and affect.
JASWINDER on CKD2 likely due to acute urinary retention:
-Renal US showed hydronephrosis, bilateral nonobstructive nephrolithiasis
-Steen placed in the ER
-was on IVFs with bicarb
-had mild Hyperkalemia and metabolic acidosis, both resolved
-started on Flomax
-Cr 5.3 on admission, now baseline
Other problems:
Recent left hip fracture s/p left hip repair by Ortho on 12/04/23
Leukocytosis and elevated LFTs, likely stress reactions: was on Rocephin, now off. No reported dysuria.
Essential HTN: cont BB/Norvasc
HLD: Cont Lipitor
Depression/anxiety: cont Zoloft
R breast cancer s/p mastectomy
FULL/Heparin
Medically cleared for discharge. Case management aware.
Anticipated Discharge: Today
Subjective/Interval History
-
Date of Service: December 15, 2023
No new complaints.
Objective Data
-
Labs:
Laboratory Results
12/15/23
06:00
WBC Pending
Hgb Pending
Hct Pending
Plt Count Pending
Sodium Pending
Potassium Pending
Chloride Pending
Carbon Dioxide Pending
BUN Pending
Creatinine Pending
Glucose Pending
Calcium Pending
Vital Signs:
Vital Signs
Temp Pulse Resp BP Pulse Ox
98.4 F 72 17 170/75 98
12/15/23 07:00 12/15/23 08:07 12/15/23 07:00 12/15/23 08:07 12/15/23 07:00
I&O
12/14/23 12/15/23 12/16/23
06:59 06:59 06:59
Intake Total 660 / 660 1080 / 1080
Output Total 3975 / 3975 3350 / 3350
Balance -3315 / -3315 -2270 / -2270
[2023-12-15 09:59] LABS: Blood Urea Nitrogen 57 mg/dl (7-17); Calcium 9.5 mg/dl (8.4-10.2); Carbon Dioxide 25 mmol/L (22-30); Chloride 110 mmol/L (98-107); Estimated Creatinine Clearance 38 ml/min; Glucose 114 mg/dl (70-99); Sodium 141 mmol/L (135-145); eGFR 41.83
[2023-12-15 10:18] VITALS: BP 142/64; PULSE 76; O2SAT 98
[2023-12-15 10:44] VITALS: BP 152/71
[2023-12-15 13:10] LABS: Hematocrit 32.3 % (37.0-47.0); Hemoglobin 11.2 g/dL (12.0-16.0); Mean Corp Hgb Conc. 34.7 g/dL (33.0-37.0); Mean Corpuscular Hgb 30.9 pg (27.0-31.0); Mean Platelet Volume 9.9 fL (7.4-10.4); Platelet Count 410 10^3/uL (130-400); Red Blood Cell Count 3.63 10^6/uL (4.20-5.40); Red Cell Dist. Width 12.7 % (11.5-14.5); White Blood Cell Count 17.5 10^3/uL (4.8-10.8)
[2023-12-15 15:00] VITALS: BP 158/77
[2023-12-15] MEDS: LIPITOR 40 MG PO (21:18)
[2023-12-15] MEDS: LOW STRENGTH ASPIRIN 81 MG PO (21:19)
[2023-12-15 23:22] VITALS: BP 128/68
[2023-12-16 07:16] LABS: Hematocrit 30.4 % (37.0-47.0); Hemoglobin 10.5 g/dL (12.0-16.0); Mean Corp Hgb Conc. 34.5 g/dL (33.0-37.0); Mean Corpuscular Hgb 31.8 pg (27.0-31.0); Mean Corpuscular Volume 92.1 fL (81.0-99.0); Mean Platelet Volume 9.9 fL (7.4-10.4); Platelet Count 379 10^3/uL (130-400); Red Cell Dist. Width 12.7 % (11.5-14.5); White Blood Cell Count 16.5 10^3/uL (4.8-10.8)
[2023-12-16 07:20] VITALS: BP 156/77
[2023-12-16 07:40] LABS: Blood Urea Nitrogen 52 mg/dl (7-17); Calcium 9.5 mg/dl (8.4-10.2); Carbon Dioxide 24 mmol/L (22-30); Chloride 108 mmol/L (98-107); Estimated Creatinine Clearance 41 ml/min; Glucose 117 mg/dl (70-99); Potassium 4.7 mmol/L (3.5-5.1); Sodium 140 mmol/L (135-145); eGFR 46.05
--- NOTE | 2023-12-16 09:21 | CM ---
Case Management following for d/c planning
Spoke with Bernie at [facility] yesterday PM - unable to accept until accept at this time pending approval by admissions on Sunday
PLan - snf pending acceptance by [facility]
--- NOTE | 2023-12-16 09:28 | W.PN.HOSP.TC ---
Today's Communication/Plan
-
d/c
Assessment / Plan
Assessment / Plan
78-year-old with PMH hypertension, hyperlipidemia, depression/anxiety; returned from SNF from recent L hip ORIF due to abnormal blood work. Patient c/o urinary incontinence. She was noted to have urinary retention in the ED and Steen was placed.
Gen: NAD, Awake and alert
Eyes: EOMI, PERRLA, no scleral icterus.
Neck: supple.
CV: remains RRR, +S1/S2, no m/r/g.
Resp: remains CTAB, no rales, wheezes, or rhonchi.
Abd: remains +BS, soft, NT, ND
Skin: No rashes.
Neuro: CN 2-12 intact, non-focal.
Psych: Normal mood and affect.
JASWINDER on CKD2 likely due to acute urinary retention:
-Renal US showed hydronephrosis, bilateral nonobstructive nephrolithiasis
-Steen placed in the ER
-was on IVFs with bicarb
-had mild Hyperkalemia and metabolic acidosis, both resolved
-started on Flomax
-Cr 5.3 on admission, now baseline
Other problems:
Recent left hip fracture s/p left hip repair by Ortho on 12/04/23
Leukocytosis and elevated LFTs, likely stress reactions: was on Rocephin, now off. No reported dysuria.
Essential HTN: cont BB/Norvasc
HLD: Cont Lipitor
Depression/anxiety: cont Zoloft
R breast cancer s/p mastectomy
FULL/Heparin
Remains medically cleared for discharge. Case management aware.
Anticipated Discharge: Today
Subjective/Interval History
-
Date of Service: December 16, 2023
No new complaints.
Objective Data
-
Labs:
Laboratory Results
12/16/23
07:00
WBC 16.5 H
Hgb 10.5 L
Hct 30.4 L
Plt Count 379
Sodium 140
Potassium 4.7
Chloride 108 H
Carbon Dioxide 24
BUN 52 H
Creatinine 1.2 H
Glucose 117 H
Calcium 9.5
Vital Signs:
Vital Signs
Temp Pulse Resp BP Pulse Ox
97.7 F 73 18 156/77 97
12/16/23 07:20 12/16/23 07:20 12/16/23 07:20 12/16/23 07:20 12/16/23 07:20
I&O
12/15/23 12/16/23 12/17/23
06:59 06:59 06:59
Intake Total 1080 / 1080 920 / 920
Output Total 3350 / 3350 1600 / 1600
Balance -2270 / -2270 -680 / -680
[2023-12-16] MEDS: HEPARIN 5000 UNITS SC ×2 (09:45→21:08)
[2023-12-16] MEDS: FLOMAX 0.4 MG PO (09:45)
[2023-12-16] MEDS: NEURONTIN 100 MG PO (09:45)
[2023-12-16] MEDS: PROCARDIA XL (EXTENDED RELEASE) 30 MG PO ×2 (09:45→21:10)
[2023-12-16] MEDS: ZOLOFT 100 MG PO (09:46)
[2023-12-16] MEDS: TOPROL XL 50 MG PO (09:46)
[2023-12-16 11:45] VITALS: BP 107/81; BP 159/75; PULSE 87
--- NOTE | 2023-12-16 11:59 | VATNOTE ---
During routine assessment, pt's L arm noted to be bruised, swollen, and tight. Pt denies pain in arm. X-ray s/p fall was negative for fracture or dislocation on 12/02. Discussed with MD, peripheral vascular ultrasound of L arm recommended to rule out
DVT. MD to order.
[2023-12-16 15:57] VITALS: BP 159/65
[2023-12-16] MEDS: LOW STRENGTH ASPIRIN 81 MG PO (21:13)
[2023-12-16] MEDS: LIPITOR 40 MG PO (21:13)
[2023-12-16 21:31] VITALS: BP 151/65
[2023-12-16 23:00] VITALS: BP 145/64
[2023-12-17 07:00] VITALS: BP 166/84
[2023-12-17] MEDS: ZOLOFT 100 MG PO (09:19)
[2023-12-17] MEDS: PROCARDIA XL (EXTENDED RELEASE) 30 MG PO ×2 (09:19→21:49)
[2023-12-17] MEDS: NEURONTIN 100 MG PO (09:20)
[2023-12-17] MEDS: FLOMAX 0.4 MG PO (09:20)
[2023-12-17] MEDS: TOPROL XL 50 MG PO (09:20)
[2023-12-17] MEDS: HEPARIN 5000 UNITS SC ×2 (09:21→21:50)
--- NOTE | 2023-12-17 09:55 | CM ---
Reviewed chart, patient medically cleared for discharge. Placed a call to [facility] and left message for Delilah in admissions to determine acceptance. Will await return call.
Plan: Case management will continue to follow and assist with discharge planning. Patient hopeful for [facility].
--- NOTE | 2023-12-17 12:43 | W.PN.HOSP.TC ---
Today's Communication/Plan
-
discharge snf/rehab
Assessment / Plan
Assessment / Plan
78-year-old with PMH hypertension, hyperlipidemia, depression/anxiety; returned from SNF from recent L hip ORIF due to abnormal blood work. Patient c/o urinary incontinence. She was noted to have urinary retention in the ED and Steen was placed.
JASWINDER on CKD2 likely due to acute urinary retention:
Metabolic acidosis - resolved
-Renal US showed hydronephrosis, bilateral nonobstructive nephrolithiasis
-Steen placed in the ER
-was on IVFs with bicarb
-had mild Hyperkalemia and metabolic acidosis, both resolved
-started on Flomax
-Cr 5.3 on admission, now baseline
Other problems:
Recent left hip fracture s/p left hip repair by Ortho on 12/04/23
Leukocytosis and elevated LFTs, likely stress reactions: was on Rocephin, now off. No reported dysuria.
Essential HTN: cont BB/Norvasc
HLD: Cont Lipitor
Depression/anxiety: cont Zoloft
R breast cancer s/p mastectomy
FULL/Heparin
Anticipated Discharge: Today
Subjective/Interval History
-
Date of Service: December 17, 2023
denies of having any issues
no acute reported issues
Objective Data
-
Vital Signs:
Vital Signs
Temp Pulse Resp BP Pulse Ox
97.6 F 82 18 166/84 98
12/17/23 07:00 12/17/23 07:00 12/17/23 07:00 12/17/23 07:00 12/17/23 07:00
I&O
12/16/23 12/17/23 12/18/23
06:59 06:59 06:59
Intake Total 920 / 920
Output Total 1600 / 1600 600 / 600
Balance -680 / -680 -600 / -600
Review of Systems
-
Respiratory: Reports No Symptoms
Cardiac: Reports No Symptoms
Abdomen/GI: Reports No Symptoms
Physical Exam
-
General: Comfortable; Negative Respiratory Distress
HEENT: Negative Oxygen
Respiratory: Clear to Auscultation
Cardiac: Regular Rhythm, S1/S2 and Murmur
GI: Soft, Nontender and Nondistended
Genito-urinary: Steen (clear urine)
Musculoskeletal: Other (L hip eleni appear intact )
Skin: Warm and Dry
Neuro: Awake, Alert, Oriented and AO x 3
Psych: Calm and Intact Judgement/Insight
--- NOTE | 2023-12-17 12:54 | CM ---
Addendum entered by MICHELLE Fisher 12/17/23 15:45:
Spoke with Delilah in admissions at [facility] who stated that she may have a bed for patient in the am. Will call tomorrow.
Original Note:
Reviewed chart, placed a call to Delilah in admissions at [facility] to determine bed availability. Spoke with Delilah who denied that she will have a bed for patient today/tomorrow. Will f/u with family for alternate SNF selections.
Plan: Case management will continue to follow and assist with discharge planning. SNF.
[2023-12-17 15:00] VITALS: BP 165/74; PULSE 82
[2023-12-17] MEDS: LOW STRENGTH ASPIRIN 81 MG PO (21:49)
[2023-12-17] MEDS: LIPITOR 40 MG PO (21:50)
[2023-12-17 23:13] VITALS: BP 158/78
[2023-12-18 07:00] VITALS: BP 158/76
[2023-12-18] MEDS: FLOMAX 0.4 MG PO (07:41)
[2023-12-18] MEDS: NEURONTIN 100 MG PO (07:42)
[2023-12-18] MEDS: PROCARDIA XL (EXTENDED RELEASE) 30 MG PO ×2 (07:42→20:56)
[2023-12-18] MEDS: HEPARIN 5000 UNITS SC ×2 (07:42→20:56)
[2023-12-18] MEDS: TOPROL XL 50 MG PO (07:43)
[2023-12-18] MEDS: ZOLOFT 100 MG PO (07:43)
--- NOTE | 2023-12-18 09:54 | CM ---
Addendum entered by MICHELLE Fisher 12/18/23 14:58:
Spoke with Delilah in admissions again who stated to call her in the am and that she should have a bed for patient. Will call in the am.
Original Note:
Placed a call to Delilah in admissions at [facility] who stated that she will look at her census to see if she can offer patient a bed today. Will await return call.
Plan: Case management will continue to follow and assist with discharge planning. Hopeful transfer to [facility] as soon as bed becomes available.
--- NOTE | 2023-12-18 12:29 | PN.CDI ---
CDI
- -
CDI:
Physician Documentation Request
Admit Date: 12/11/23 18:39
Dear Doctor Victorino,
Patient admitted with JASWINDER.
Previous admission 12/07/23 Hospitalist PN: 'Acute post op blood loss anemia, Hgb today 11.6, was 10.9 yesterday, at 15 on admission'
Laboratory Tests
12/11/23 12/12/23 12/13/23
16:31 06:57 09:58
Hgb 11.7 L 10.2 L 9.9 L
Based on the above, could you clarify in the progress notes, the appropriate diagnosis, if significant, that supports the above abnormalities and additional evaluation, monitoring and/or treatment rendered:
Acute blood loss anemia
Acute blood loss anemia with baseline chronic anemia (Specify type)
Anemia of chronic disease - indicate if neoplastic disease, CKD or other
Chronic iron deficiency anemia due to blood loss
Vitamin B deficiency anemia - indicate3 etiology, such as intrinsic factor deficiency, malabsorption, transcobalamin II deficiency, dietary etc.
Folate deficiency anemia - indicate etiology, such as dietary, drug induced etc.
Protein deficiency anemia
Other
Unable to determine
Use of terms such as suspected, likely, concern for, or probable (associated with a specific diagnosis that is being evaluated, monitored, or treated as if it exists) are acceptable and can be coded in the inpatient setting, when documented at the
time of discharge.
Thank you,
Daphnie Jimenez RN, BSN
CDI Specialist
Available via [place] text
Please use your independent medical judgment in providing your response.
--- NOTE | 2023-12-18 14:29 | W.PN.HOSP.TC ---
Today's Communication/Plan
-
discharge planning
voiding trial
Assessment / Plan
Assessment / Plan
78-year-old with PMH hypertension, hyperlipidemia, depression/anxiety; returned from SNF from recent L hip ORIF due to abnormal blood work. Patient c/o urinary incontinence. She was noted to have urinary retention in the ED and Steen was placed.
JASWINDER on CKD2 likely due to acute urinary retention:
Metabolic acidosis - resolved
-Renal US showed hydronephrosis, bilateral nonobstructive nephrolithiasis
-was on IVFs with bicarb
-had mild Hyperkalemia and metabolic acidosis, both resolved
-started on Flomax
-Cr 5.3 on admission, now baseline
-Steen catheter has been removed .
Other problems:
Recent left hip fracture s/p left hip repair by Ortho on 12/04/23
Leukocytosis and elevated LFTs, likely stress reactions: was on Rocephin, now off. No reported dysuria.
Essential HTN: cont BB/Norvasc
HLD: Cont Lipitor
Depression/anxiety: cont Zoloft
R breast cancer s/p mastectomy
FULL/Heparin
Anticipated Discharge: Within 24 hours
Subjective/Interval History
-
Date of Service: December 18, 2023
Resting comfortably in bed
no reported issues overnight
Objective Data
-
Vital Signs:
Vital Signs
Temp Pulse Resp BP Pulse Ox
97.5 F 75 17 158/76 95
12/18/23 07:00 12/18/23 07:00 12/18/23 07:00 12/18/23 07:00 12/18/23 07:00
I&O
12/17/23 12/18/23 12/19/23
06:59 06:59 06:59
Intake Total 1500 / 1500
Output Total 600 / 600 1350 / 1350
Balance -600 / -600 150 / 150
Review of Systems
-
Respiratory: Reports No Symptoms
Cardiac: Reports No Symptoms
Abdomen/GI: Reports No Symptoms
Physical Exam
-
General: Comfortable; Negative Respiratory Distress
HEENT: Negative Oxygen
Respiratory: Clear to Auscultation
Cardiac: Regular Rhythm, S1/S2 and Murmur
GI: Soft, Nontender and Nondistended
Genito-urinary: Steen (clear urine)
Musculoskeletal: Other (L hip eleni appear intact )
Skin: Warm and Dry
Neuro: Awake, Alert, Oriented and AO x 3
Psych: Calm and Intact Judgement/Insight
[2023-12-18 14:34] VITALS: BP 147/60
[2023-12-18 15:11] VITALS: BP 146/62; PULSE 80
[2023-12-18] MEDS: LOW STRENGTH ASPIRIN 81 MG PO (20:56)
[2023-12-18] MEDS: LIPITOR 40 MG PO (20:57)
[2023-12-18] MEDS: SENOKOT-S 1 TABLET PO (21:27)
[2023-12-18 23:07] VITALS: BP 142/64
[2023-12-19 07:00] VITALS: BP 134/71
[2023-12-19 07:21] LABS: Blood Urea Nitrogen 46 mg/dl (7-17); Calcium 9.6 mg/dl (8.4-10.2); Carbon Dioxide 25 mmol/L (22-30); Chloride 109 mmol/L (98-107); Estimated Creatinine Clearance 38 ml/min; Glucose 120 mg/dl (70-99); Potassium 4.5 mmol/L (3.5-5.1); Sodium 142 mmol/L (135-145); eGFR 41.83
[2023-12-19] MEDS: FLOMAX 0.4 MG PO (07:59)
[2023-12-19] MEDS: ZOLOFT 100 MG PO (07:59)
[2023-12-19] MEDS: NEURONTIN 100 MG PO (08:00)
[2023-12-19] MEDS: TOPROL XL 50 MG PO (08:00)
[2023-12-19] MEDS: HEPARIN 5000 UNITS SC (08:03)
[2023-12-19] MEDS: PROCARDIA XL (EXTENDED RELEASE) 30 MG PO (09:12)
--- NOTE | 2023-12-19 10:43 | CM ---
Reviewed chart, placed a call to Delilah in admissions at [facility] who stated that she does have a bed for patient today. #For report [phone], .
Will complete medical necessity and transfer sheet for community services manager. Will update attending an RN.
Plan: Case management will continue to follow and assist with discharge planning. Transfer to [facility].
[2023-12-19 12:00] VITALS: BP 140/76
--- NOTE | 2023-12-19 13:07 | W.PN.HOSP.TC ---
Addendum entered and electronically signed by Jae Gleason MD 12/23/23 14:08:
In response to CDI query
Acute blood loss anemia with chronic anemia of unknown etiology
Original Note:
Today's Communication/Plan
-
d/c SNF Rehab
Assessment / Plan
Assessment / Plan
78-year-old with PMH hypertension, hyperlipidemia, depression/anxiety; returned from SNF from recent L hip ORIF due to abnormal blood work. Patient c/o urinary incontinence. She was noted to have urinary retention in the ED and Steen was placed.
JASWINDER on CKD2 likely due to acute urinary retention:
Metabolic acidosis - resolved
-Renal US showed hydronephrosis, bilateral nonobstructive nephrolithiasis
-was on IVFs with bicarb
-had mild Hyperkalemia and metabolic acidosis, both resolved
-started on Flomax
-Cr 5.3 on admission, now baseline
-Steen catheter has been removed and able to void without problems
Other problems:
Recent left hip fracture s/p left hip repair by Ortho on 12/04/23
Leukocytosis and elevated LFTs, likely stress reactions: was on Rocephin, now off. No reported dysuria.
Essential HTN: cont BB/Norvasc
HLD: Cont Lipitor
Depression/anxiety: cont Zoloft
R breast cancer s/p mastectomy
FULL/Heparin
Anticipated Discharge: Today
Subjective/Interval History
-
Date of Service: December 19, 2023
no acute issues reported in night
Objective Data
-
Labs:
Laboratory Results
12/19/23
06:49
Sodium 142
Potassium 4.5
Chloride 109 H
Carbon Dioxide 25
BUN 46 H
Creatinine 1.3 H
Glucose 120 H
Calcium 9.6
Vital Signs:
Vital Signs
Temp Pulse Resp BP Pulse Ox
97.6 F 74 17 134/71 97
12/19/23 07:00 12/19/23 09:12 12/19/23 07:00 12/19/23 09:12 12/19/23 07:00
I&O
12/18/23 12/19/23 12/20/23
06:59 06:59 06:59
Intake Total 1500 / 1500 1080 / 1080
Output Total 1350 / 1350 2500 / 2500
Balance 150 / 150 -1420 / -1420
Review of Systems
-
Respiratory: Reports No Symptoms
Cardiac: Reports No Symptoms
Abdomen/GI: Reports No Symptoms
Physical Exam
-
General: No Apparent Distress and Comfortable
HEENT: Negative Oxygen
Respiratory: Clear to Auscultation
Cardiac: Regular Rhythm and S1/S2; Negative Murmur or Rub
GI: Soft, Nontender, Nondistended and Normal Bowel Sounds
Musculoskeletal: No Edema
Neuro: Awake, Alert, Oriented, No Motor Deficits and Nonfocal/Grossly Intact
Psych: Calm
--- NOTE | 2023-12-19 13:16 | PTCARENOTE ---
indwelling negro placed per protocol x1 attempt. pt tolerated well. draining clear yellow urine.
--- NOTE | 2023-12-21 14:14 | W.DCSUMMARY ---
Discharge Summary
Discharge Data
Date of Admission: 12/11/23
Date of Discharge: 12/19/23
-
Pending Results: No
Hospital Course
Discharging Physician : Dr Jae Gleason
Disposition : SNF rehab
Primary care physician : Duane Vasquez MD
Principal Discharge diagnosis :
Acute urinary retention
Acute urine chronic disease stage II
Metabolic acidosis
Hyperkalemia
Chronic Discharge diagnosis :
History of breast cancer
Transient ischemic attack
Hyperlipidemia
Sleep apnea
History of hysterectomy
History of mastectomy
Hospital Course :
Patient is a 78-year-old female with no mentioned past medical history came with new onset of urinary incontinence. In ER on exam patient was noted to having significant abdominal distention and lumbar disc and was found to having same retention.
Steen catheter was placed in ER. Further lab workup showing patient having renal failure and this was felt to be postrenal in nature. Patient had associated metabolic acidosis. Renal ultrasound was showing hydronephrosis and bilateral
nonobstructive nephrolithiasis. Patient was started on bicarb IVF with which patient acidosis and hyperkalemia improved. Post normalization of renal function patient Steen catheter was removed. Patient was discharged back to [facility] for rehab.
Important imaging findings :
None
Procedure findings :
None
Discharge Plan
-
Patient Disposition: Care Home/SNF
Discharge Diagnosis/Procedures: Acute urinary retention, JASWINDER on CKDIII
Condition: Fair
Diet: Low Cholesterol
Activity: As tolerated
Driving Restrictions: No driving
Bathing Restrictions: OK to Shower
Activity Restrictions/Additional Instructions:
Please
Referrals:
Duane aVsquez MD [Family Provider] - in one week
Prescriptions:
New
tamsulosin 0.4 mg Capsule
0.4 mg PO DAILY Qty: 30 0RF
nifedipine 30 mg Tablet Extended Release
30 mg PO BID Qty: 60 0RF
Continued
multivitamin [One-A-Day Essential] 1 EACH tablet
1 ea PO DAILY
sertraline 100 MG tablet
100 mg PO DAILY
ascorbic acid (vitamin C) [Vitamin C] 500 MG capsule, extended release
1,000 mg PO HS
aspirin 81 MG tablet,chewable
81 mg PO HS
atorvastatin 40 mg Tablet
40 mg PO HS
gabapentin 100 mg Capsule
100 mg PO DAILY
coQ10 (ubiquinol) 200 mg Capsule
400 mg PO DAILY
metoprolol succinate 50 mg tablet extended release 24 hr
50 mg PO DAILY
magnesium hydroxide [Milk of Magnesia] 400 mg/5 mL Suspension
15 ml PO DAILYPRN PRN (Reason: if no bm on day 4)
bisacodyl [Dulcolax (bisacodyl)] 10 mg Suppository
10 mg HI DAILYPRN PRN (Reason: if mom is ineffective/day 5 no bm)
Fleet Enema 19-7 gram/118 mL Enema
118 ml HI DAILYPRN PRN (Reason: if dulcolax is ineffective/day 6 no bm)
acetaminophen [Tylenol] 325 mg capsule
650 mg PO Q4HPRN PRN (Reason: mild pain/fever>101)
Discontinued
amlodipine [Norvasc] 5 MG tablet
5 mg PO HS
Discharge Orders:
Discharge Patient (As Directed); Ordered 12/17/23
Ordered By: Jae Gleason
Discharge Date and Time
Discharge Date/Time: 12/19/23 14:14
Print Language: LUXEMBOURGER
== END 2023-12-19 14:14 | DRG 683 ==
LOC: 3 WEST ACU 18:39
PROVIDERS: Internal Medicine; Physician Assistant; Registered Nurse; ADMITTING PHYSICIAN Internal Medicine; ATTENDING PHYSICIAN Hospitalist; EMERGENCY PHYSICIAN Emergency Medicine; FAMILY PHYSICIAN Family Medicine; OTHER PHYSICIAN Specialist
DX: N17.9 Acute kidney failure, unspecified (principal); D62 Acute posthemorrhagic anemia; E87.1 Hypo-osmolality and hyponatremia; E87.20 Acidosis, unspecified; I12.9 Hypertensive chronic kidney disease with stage 1 through stage 4 chronic kidney disease, or unspecified chronic kidney disease; N18.30 Chronic kidney disease, stage 3 unspecified; F32.A Depression, unspecified; E83.39 Other disorders of phosphorus metabolism; N13.2 Hydronephrosis with renal and ureteral calculous obstruction; R33.9 Retention of urine, unspecified; E87.5 Hyperkalemia; E83.42 Hypomagnesemia; S72.002D Fracture of unspecified part of neck of left femur, subsequent encounter for closed fracture with routine healing; X58.XXXD Exposure to other specified factors, subsequent encounter; D72.829 Elevated white blood cell count, unspecified; R79.89 Other specified abnormal findings of blood chemistry; E78.00 Pure hypercholesterolemia, unspecified; F41.9 Anxiety disorder, unspecified; G47.30 Sleep apnea, unspecified; R32 Unspecified urinary incontinence; Z79.82 Long term (current) use of aspirin; Z79.899 Other long term (current) drug therapy; Z85.3 Personal history of malignant neoplasm of breast; Z90.12 Acquired absence of left breast and nipple; Z90.710 Acquired absence of both cervix and uterus; Z86.73 Personal history of transient ischemic attack (TIA), and cerebral infarction without residual deficits
CPT/HCPCS: 36415; 51702; 76770; 80048; 80053; 81003; 81015; 82248; 82805; 82962; 83735; 84100; 85025; 85027; 87070; 87086; 93005; 93971; 96361; 96374; 97116; 97162; 97167; 97530; 97535; 99285

== ENCOUNTER → 2023-12-21 10:40 | Outpatient (REF) | payer OTHER, MEDICARE, SELFPAY ==
[2023-12-21 11:24] LABS: % Basophils 0.5 % (0-2); % Eosinophils 2.5 % (0-6); % Immature Granulocytes 2.6 % (0-0.5); % Lymphocytes 13.8 % (20.5-51.1); % Monocytes 5.1 % (1.7-9.3); % Neutrophils 75.5 % (42.2-75.2); Absolute Basophils 0.1 10^3/uL (0-0.2); Absolute Eosinophils 0.3 10^3/uL (0-0.7); Absolute Immature Granulocytes 0.3 10^3/uL (0-0.05); Absolute Lymphocytes 1.8 10^3/uL (1.2-3.4); Absolute Monocytes 0.7 10^3/uL (0.1-0.6); Hemoglobin 10.1 g/dL (12.0-16.0); Mean Corp Hgb Conc. 33.7 g/dL (33.0-37.0); Mean Corpuscular Hgb 31.2 pg (27.0-31.0); Mean Corpuscular Volume 92.6 fL (81.0-99.0); Mean Platelet Volume 10.7 fL (7.4-10.4); Nucleated Red Blood Cells % 0 %; Platelet Count 367 10^3/uL (130-400); Red Blood Cell Count 3.24 10^6/uL (4.20-5.40); Red Cell Dist. Width 13.1 % (11.5-14.5); White Blood Cell Count 13.2 10^3/uL (4.8-10.8)
[2023-12-21 12:45] LABS: Blood Urea Nitrogen 38 mg/dl (7-17); Calcium 9.3 mg/dl (8.4-10.2); Carbon Dioxide 26 mmol/L (22-30); Chloride 107 mmol/L (98-107); Glucose 95 mg/dl (70-99); Potassium 4.7 mmol/L (3.5-5.1); Sodium 139 mmol/L (135-145); eGFR 46.05
== END ==
LOC: OLABP 10:40
PROVIDERS: ATTENDING PHYSICIAN Family Medicine
DX: Z85.3 Personal history of malignant neoplasm of breast (principal); S72.002D Fracture of unspecified part of neck of left femur, subsequent encounter for closed fracture with routine healing; I10 Essential (primary) hypertension; M62.81 Muscle weakness (generalized); N20.0 Calculus of kidney; N13.2 Hydronephrosis with renal and ureteral calculous obstruction; N18.2 Chronic kidney disease, stage 2 (mild); N17.9 Acute kidney failure, unspecified
CPT/HCPCS: 80048; 85025

== ENCOUNTER → 2023-12-25 10:39 | Outpatient (REF) | payer OTHER, MEDICARE, SELFPAY ==
[2023-12-25 11:37] LABS: % Basophils 0.4 % (0-2); % Eosinophils 1.4 % (0-6); % Immature Granulocytes 0.9 % (0-0.5); % Lymphocytes 15.6 % (20.5-51.1); % Monocytes 8.3 % (1.7-9.3); % Neutrophils 73.4 % (42.2-75.2); Absolute Eosinophils 0.2 10^3/uL (0-0.7); Absolute Immature Granulocytes 0.1 10^3/uL (0-0.05); Absolute Lymphocytes 1.7 10^3/uL (1.2-3.4); Absolute Monocytes 0.9 10^3/uL (0.1-0.6); Absolute Neutrophils 7.8 10^3/uL (1.4-6.5); Blood Urea Nitrogen 40 mg/dl (7-17); Calcium 9.2 mg/dl (8.4-10.2); Carbon Dioxide 25 mmol/L (22-30); Chloride 107 mmol/L (98-107); Glucose 107 mg/dl (70-99); Hematocrit 29.3 % (37.0-47.0); Hemoglobin 10.1 g/dL (12.0-16.0); Mean Corp Hgb Conc. 34.5 g/dL (33.0-37.0); Mean Corpuscular Hgb 31.7 pg (27.0-31.0); Mean Corpuscular Volume 91.8 fL (81.0-99.0); Mean Platelet Volume 11.2 fL (7.4-10.4); Nucleated Red Blood Cells % 0 %; Platelet Count 278 10^3/uL (130-400); Potassium 4.3 mmol/L (3.5-5.1); Red Blood Cell Count 3.19 10^6/uL (4.20-5.40); Red Cell Dist. Width 13.1 % (11.5-14.5); Sodium 138 mmol/L (135-145); White Blood Cell Count 10.6 10^3/uL (4.8-10.8); eGFR 41.83
== END ==
LOC: OLABP 10:39
PROVIDERS: ATTENDING PHYSICIAN Family Medicine
DX: Z85.3 Personal history of malignant neoplasm of breast (principal); S72.002D Fracture of unspecified part of neck of left femur, subsequent encounter for closed fracture with routine healing; I10 Essential (primary) hypertension; S50.02XD Contusion of left elbow, subsequent encounter; M62.81 Muscle weakness (generalized); N17.9 Acute kidney failure, unspecified; N20.0 Calculus of kidney; N13.2 Hydronephrosis with renal and ureteral calculous obstruction; N18.2 Chronic kidney disease, stage 2 (mild)
CPT/HCPCS: 36415; 80048; 85025

== ENCOUNTER → 2023-12-28 10:49 | Outpatient (REF) | payer OTHER, MEDICARE, SELFPAY ==
[2023-12-28 11:53] LABS: % Basophils 0.5 % (0-2); % Eosinophils 3.6 % (0-6); % Lymphocytes 17.4 % (20.5-51.1); % Neutrophils 70.5 % (42.2-75.2); Absolute Eosinophils 0.3 10^3/uL (0-0.7); Absolute Immature Granulocytes 0.1 10^3/uL (0-0.05); Absolute Lymphocytes 1.4 10^3/uL (1.2-3.4); Absolute Monocytes 0.6 10^3/uL (0.1-0.6); Absolute Neutrophils 5.7 10^3/uL (1.4-6.5); Hematocrit 30.1 % (37.0-47.0); Hemoglobin 10.2 g/dL (12.0-16.0); Mean Corp Hgb Conc. 33.9 g/dL (33.0-37.0); Mean Corpuscular Hgb 31.4 pg (27.0-31.0); Mean Corpuscular Volume 92.6 fL (81.0-99.0); Mean Platelet Volume 11.1 fL (7.4-10.4); Nucleated Red Blood Cells % 0 %; Platelet Count 228 10^3/uL (130-400); Red Blood Cell Count 3.25 10^6/uL (4.20-5.40)
[2023-12-28 12:28] LABS: Blood Urea Nitrogen 33 mg/dl (7-17); Carbon Dioxide 26 mmol/L (22-30); Chloride 107 mmol/L (98-107); Glucose 100 mg/dl (70-99); Potassium 4.2 mmol/L (3.5-5.1); Sodium 139 mmol/L (135-145); eGFR 51.11
== END ==
LOC: OLABP 10:49
PROVIDERS: ATTENDING PHYSICIAN Family Medicine
DX: Z85.3 Personal history of malignant neoplasm of breast (principal); S72.002D Fracture of unspecified part of neck of left femur, subsequent encounter for closed fracture with routine healing; I10 Essential (primary) hypertension; S50.02XD Contusion of left elbow, subsequent encounter; N17.9 Acute kidney failure, unspecified; M62.81 Muscle weakness (generalized); N20.0 Calculus of kidney; N13.2 Hydronephrosis with renal and ureteral calculous obstruction; N16 Renal tubulo-interstitial disorders in diseases classified elsewhere
CPT/HCPCS: 36415; 80048; 85025

== ENCOUNTER → 2024-01-08 10:07 | Outpatient (REF) | payer OTHER, MEDICARE, SELFPAY ==
[2024-01-08 11:35] LABS: % Basophils 0.3 % (0-2); % Eosinophils 0.2 % (0-6); % Monocytes 8.9 % (1.7-9.3); % Neutrophils 66.6 % (42.2-75.2); Absolute Immature Granulocytes 0.1 10^3/uL (0-0.05); Absolute Lymphocytes 1.4 10^3/uL (1.2-3.4); Absolute Monocytes 0.6 10^3/uL (0.1-0.6); Absolute Neutrophils 4.2 10^3/uL (1.4-6.5); Hematocrit 31.3 % (37.0-47.0); Hemoglobin 10.2 g/dL (12.0-16.0); Mean Corp Hgb Conc. 32.6 g/dL (33.0-37.0); Mean Corpuscular Hgb 30.1 pg (27.0-31.0); Mean Corpuscular Volume 92.3 fL (81.0-99.0); Mean Platelet Volume 10.6 fL (7.4-10.4); Nucleated Red Blood Cells % 0 %; Platelet Count 236 10^3/uL (130-400); Red Blood Cell Count 3.39 10^6/uL (4.20-5.40); Red Cell Dist. Width 13.5 % (11.5-14.5); White Blood Cell Count 6.4 10^3/uL (4.8-10.8)
[2024-01-08 11:49] LABS: Blood Urea Nitrogen 31 mg/dl (7-17); Calcium 8.6 mg/dl (8.4-10.2); Carbon Dioxide 28 mmol/L (22-30); Chloride 106 mmol/L (98-107); Glucose 89 mg/dl (70-99); Potassium 3.8 mmol/L (3.5-5.1); Sodium 138 mmol/L (135-145); eGFR 41.83
== END ==
LOC: OLABP 10:07
PROVIDERS: ATTENDING PHYSICIAN Family Medicine
DX: Z85.3 Personal history of malignant neoplasm of breast (principal); S72.002D Fracture of unspecified part of neck of left femur, subsequent encounter for closed fracture with routine healing; S50.02XD Contusion of left elbow, subsequent encounter; M62.81 Muscle weakness (generalized); N20.0 Calculus of kidney; N13.2 Hydronephrosis with renal and ureteral calculous obstruction; N18.2 Chronic kidney disease, stage 2 (mild); N17.9 Acute kidney failure, unspecified
CPT/HCPCS: 36415; 80048; 85025

== ENCOUNTER → 2024-01-10 09:55 | Outpatient (REF) | payer OTHER, MEDICARE, SELFPAY ==
[2024-01-10 10:56] LABS: Blood Urea Nitrogen 35 mg/dl (7-17); Calcium 8.4 mg/dl (8.4-10.2); Carbon Dioxide 25 mmol/L (22-30); Chloride 102 mmol/L (98-107); Glucose 90 mg/dl (70-99); Potassium 3.9 mmol/L (3.5-5.1); Sodium 135 mmol/L (135-145); eGFR 41.83
[2024-01-10 11:14] LABS: % Basophils 0.1 % (0-2); % Eosinophils 0.1 % (0-6); % Lymphocytes 17.3 % (20.5-51.1); % Monocytes 6.4 % (1.7-9.3); % Neutrophils 75.1 % (42.2-75.2); Absolute Immature Granulocytes 0.1 10^3/uL (0-0.05); Absolute Lymphocytes 1.8 10^3/uL (1.2-3.4); Absolute Monocytes 0.7 10^3/uL (0.1-0.6); Absolute Neutrophils 7.8 10^3/uL (1.4-6.5); Hematocrit 30.1 % (37.0-47.0); Hemoglobin 10.2 g/dL (12.0-16.0); Mean Corp Hgb Conc. 33.9 g/dL (33.0-37.0); Mean Corpuscular Hgb 30.5 pg (27.0-31.0); Mean Corpuscular Volume 90.1 fL (81.0-99.0); Mean Platelet Volume 11.1 fL (7.4-10.4); Nucleated Red Blood Cells % 0 %; Platelet Count 187 10^3/uL (130-400); Red Blood Cell Count 3.34 10^6/uL (4.20-5.40); Red Cell Dist. Width 13.3 % (11.5-14.5); White Blood Cell Count 10.4 10^3/uL (4.8-10.8)
[2024-01-10 11:49] LABS: Urine Albumin 1+ (Neg - Trace); Urine Bilirubin Negative (Negative); Urine Character Slightly Cloudy (Clear); Urine Color Yellow; Urine Glucose Negative (Negative); Urine Ketone Negative (Negative); Urine Leukocyte 1+ (Negative); Urine Nitrite Positive (Negative); Urine Occult Blood 1+ (Negative); Urine Urobilinogen Negative (Neg - 1+)
[2024-01-10 12:12] LABS: Urine Mucus Few
[2024-01-10 12:13] LABS: Urine Amorphous Seen
[2024-01-10 12:14] LABS: Urine Bacteria Many (Negative)
[2024-01-10 12:15] LABS: Urine White Cell 40-50 /HPF (0-5)
== END ==
LOC: OLABP 09:55
PROVIDERS: ATTENDING PHYSICIAN Family Medicine
DX: Z85.3 Personal history of malignant neoplasm of breast (principal); S72.002D Fracture of unspecified part of neck of left femur, subsequent encounter for closed fracture with routine healing; I10 Essential (primary) hypertension; S50.02XD Contusion of left elbow, subsequent encounter; N17.9 Acute kidney failure, unspecified; M62.81 Muscle weakness (generalized); N20.0 Calculus of kidney; N13.0 Hydronephrosis with ureteropelvic junction obstruction; N13.2 Hydronephrosis with renal and ureteral calculous obstruction; N18.2 Chronic kidney disease, stage 2 (mild)
CPT/HCPCS: 36415; 80048; 81003; 81015; 85025; 87077; 87086; 87186

== ENCOUNTER → 2024-01-14 11:36 | Outpatient (REF) | payer OTHER, MEDICARE, SELFPAY ==
[2024-01-14 11:56] LABS: % Basophils 0.3 % (0-2); % Eosinophils 0.8 % (0-6); % Lymphocytes 13.5 % (20.5-51.1); % Monocytes 6.7 % (1.7-9.3); % Neutrophils 76.7 % (42.2-75.2); Absolute Eosinophils 0.1 10^3/uL (0-0.7); Absolute Immature Granulocytes 0.2 10^3/uL (0-0.05); Absolute Lymphocytes 1.4 10^3/uL (1.2-3.4); Absolute Monocytes 0.7 10^3/uL (0.1-0.6); Absolute Neutrophils 8.1 10^3/uL (1.4-6.5); Hematocrit 29.7 % (37.0-47.0); Hemoglobin 9.8 g/dL (12.0-16.0); Mean Corpuscular Hgb 29.6 pg (27.0-31.0); Mean Corpuscular Volume 89.7 fL (81.0-99.0); Mean Platelet Volume 10.8 fL (7.4-10.4); Nucleated Red Blood Cells % 0 %; Platelet Count 244 10^3/uL (130-400); Red Blood Cell Count 3.31 10^6/uL (4.20-5.40); Red Cell Dist. Width 13.2 % (11.5-14.5); White Blood Cell Count 10.5 10^3/uL (4.8-10.8)
[2024-01-14 12:14] LABS: ALT (SGPT) 52 U/L (0-35); AST (SGOT) 41 U/L (14-36); Albumin 2.9 g/dl (3.5-5.0); Alkaline Phosphatase 86 U/L (38-126); Blood Urea Nitrogen 30 mg/dl (7-17); Calcium 9.1 mg/dl (8.4-10.2); Carbon Dioxide 23 mmol/L (22-30); Chloride 107 mmol/L (98-107); Glucose 95 mg/dl (70-99); Potassium 3.9 mmol/L (3.5-5.1); Sodium 139 mmol/L (135-145); Total Bilirubin 0.4 mg/dl (0.2-1.3); Total Protein 5.7 g/dl (6.3-8.2); eGFR 51.11
== END ==
LOC: OLABP 11:36
PROVIDERS: ATTENDING PHYSICIAN Family Medicine
DX: S72.002D Fracture of unspecified part of neck of left femur, subsequent encounter for closed fracture with routine healing (principal); I10 Essential (primary) hypertension; S50.02XD Contusion of left elbow, subsequent encounter; N17.9 Acute kidney failure, unspecified; M62.81 Muscle weakness (generalized); N20.0 Calculus of kidney; N13.2 Hydronephrosis with renal and ureteral calculous obstruction
CPT/HCPCS: 80053; 85025

== ENCOUNTER 2024-02-01 18:19 | Inpatient (IN) | payer MEDICARE, OTHER, SELFPAY ==
[2024-02-01 15:20] VITALS: BMI 26.9
--- NOTE | 2024-02-01 15:53 | ED.GENMED ---
History of Present Illness
<Tanna Valerio PA-C - Last Filed: 02/01/24 18:23>
General
Chief Complaint: Musculo-Skeletal Complaint
Source: patient
Time Seen by Provider: 02/01/24 15:43
History of Present Illness
History of Present Illness:
78yoF with a history of hypertension, hyperlipidemia, and CKD presenting via EMS requesting rehab placement. Patient sustained a left hip fracture in November and underwent hemiarthroplasty on 12/04/2023. Patient was discharged to [facility] rehab facility
after her hospitalization. She just left her rehab facility 3 days ago and she is currently in independent living. Patient reports that she is unable to care for herself at home. She would like to be placed in a different rehab facility. Patient
reports that she has been mostly sedentary over the past several months which has contributed to her lower extremity weakness. Patient states that she is scheduled to go to the [facility] rehab facility but there was an issue with the paperwork. She
has no other concerns at this time.
Past History
<Tanna Valerio PA-C - Last Filed: 02/01/24 18:23>
Past History
ED Past Medical History: None, Cancer, HTN and Hypercholesterolemia
ED Past Surgical History: None and Gynecological
Social History
Tobacco: Non-smoker
Alcohol: None
Drug: None
Personal:
Living: with family
Employment: Retired
Phy Exam
<Tanna Valerio PA-C - Last Filed: 02/01/24 18:23>
General Physical Exam
General Presentation: well appearing and no apparent distress
General age: appears stated age
General Skin: warm and dry
General Habitus: normal
General Mental: alert
Cardiovascular Exam
Cardiovascular Exam: regular rate/rhythm
Pulmonary Exam
Pulmonary Exam: no respiratory distress
Neurological Exam
Neurological Exam: alert and other (4/5 strength in bilateral lower extremities)
[place] Coma Scale
Eye Opening: Spontaneous
Verbal Response: Oriented
Motor Response: Obeys Commands
GCS Total Score: 15
Skin Exam
Skin Exam: normal color and warm/dry
Psychiatric Exam
Psychiatric Exam: normal mood/affect
<Boris Bautista DO - Last Filed: 02/01/24 18:29>
[place] Coma Scale
GCS Total Score: 15
Course
<Tanna Valerio PA-C - Last Filed: 02/01/24 18:23>
Orders/Labs/Results
Orders:
Orders
02/01/24 15:46
Case Management Consult ONCE
Case Management Consult: VN/Home Care
02/01/24 15:52
Pt Eval And Treat Urgent
Activity Level: Out of Bed- Ad Winsome
02/01/24 17:35
Complete Blood Count/With Diff Urgent
Comprehensive Metabolic Panel Urgent
02/01/24 18:04
Admit/Transfer Patient As Directed
Co-Sign Provider:
Level of Care: Inpatient admission
Assign to:: Medical/Surgical
Physician / Group: William Ruiz
Transfer to: Medical/Surgical
Diagnosis: Deconditioning, ambulatory dysfunction, lower extremity weakness
Reason for Hospitalization: Deconditioning with lower extremity weakness. PT/OT and placement
Expected length of stay greater than two midnights?: Yes
ELOS- Estimated Length of Stay in days: 3
I certify the patient meets the requirements for IP care: Yes
PRN Pain Medication Management As Directed
May give lesser potent ordered pain med per pt: Yes
preference::
Protocol:: Medication orders for pain may be administered in a
manner that supports deferring to patient preference
when the pt is:
- Requesting an ordered lesser potent pain medication.
Least to most potent pain medications are defined
as: acetaminophen < NSAID < tramadol < opioids
(morphine, oxycodone, hydromorphone).
- Requesting a lesser dose of the same medication IF
ORDERED.
- Requesting a less intrusive route of administration
if both routes are prescribed by the provider (PO <
IV).
02/01/24 18:06
Code Status As Directed
Resuscitation Status: Full Code
02/01/24 18:07
Case Management Consult ONCE
Case Management Consult: Discharge Planning
02/02/24 06:00
Ot Eval And Treat IN AM
PT Consult [Pt Eval And Treat] IN AM
Activity Level: Out of Bed-Early Mobility
Abnormal Lab Results
02/01/24
17:35
RBC 3.72 L 10^6/uL
(4.20-5.40)
Hgb 10.4 L g/dL
(12.0-16.0)
Hct 31.9 L %
(37.0-47.0)
MCHC 32.6 L g/dL
(33.0-37.0)
RDW 14.7 H %
(11.5-14.5)
Abs Immat Gran (auto) 0.1 H 10^3/uL
(0-0.05)
Absolute Monos (auto) 0.7 H 10^3/uL
(0.1-0.6)
Immature Gran % 1.0 H %
(0-0.5)
Lymphocytes % 16.2 L %
(20.5-51.1)
BUN 29 H mg/dl
(7-17)
Glucose 110 H mg/dl
(70-99)
02/01/24 17:35
02/01/24 17:35
Vital Signs
Initial and Last Documented VS:
Initial Vital Signs
Temp
98.1 F
02/01/24 15:20
Last Documented Vital Signs
Temp Pulse Pulse Ox
98.1 F 100 98
02/01/24 15:20 02/01/24 15:29 02/01/24 15:29
<Boris Wilhelm DO Lily - Last Filed: 02/01/24 18:29>
Orders/Labs/Results
Orders:
Orders
02/01/24 15:46
Case Management Consult ONCE
Case Management Consult: VN/Home Care
02/01/24 15:52
Pt Eval And Treat Urgent
Activity Level: Out of Bed- Ad Winsome
02/01/24 17:35
Complete Blood Count/With Diff Urgent
Comprehensive Metabolic Panel Urgent
02/01/24 18:04
Admit/Transfer Patient As Directed
Co-Sign Provider:
Level of Care: Inpatient admission
Assign to:: Medical/Surgical
Physician / Group: William Ruiz
Transfer to: Medical/Surgical
Diagnosis: Deconditioning, ambulatory dysfunction, lower extremity weakness
Reason for Hospitalization: Deconditioning with lower extremity weakness. PT/OT and placement
Expected length of stay greater than two midnights?: Yes
ELOS- Estimated Length of Stay in days: 3
I certify the patient meets the requirements for IP care: Yes
PRN Pain Medication Management As Directed
May give lesser potent ordered pain med per pt: Yes
preference::
Protocol:: Medication orders for pain may be administered in a
manner that supports deferring to patient preference
when the pt is:
- Requesting an ordered lesser potent pain medication.
Least to most potent pain medications are defined
as: acetaminophen < NSAID < tramadol < opioids
(morphine, oxycodone, hydromorphone).
- Requesting a lesser dose of the same medication IF
ORDERED.
- Requesting a less intrusive route of administration
if both routes are prescribed by the provider (PO <
IV).
02/01/24 18:06
Code Status As Directed
Resuscitation Status: Full Code
02/01/24 18:07
Case Management Consult ONCE
Case Management Consult: Discharge Planning
02/02/24 06:00
Ot Eval And Treat IN AM
PT Consult [Pt Eval And Treat] IN AM
Activity Level: Out of Bed-Early Mobility
Abnormal Lab Results
02/01/24
17:35
RBC 3.72 L 10^6/uL
(4.20-5.40)
Hgb 10.4 L g/dL
(12.0-16.0)
Hct 31.9 L %
(37.0-47.0)
MCHC 32.6 L g/dL
(33.0-37.0)
RDW 14.7 H %
(11.5-14.5)
Abs Immat Gran (auto) 0.1 H 10^3/uL
(0-0.05)
Absolute Monos (auto) 0.7 H 10^3/uL
(0.1-0.6)
Immature Gran % 1.0 H %
(0-0.5)
Lymphocytes % 16.2 L %
(20.5-51.1)
BUN 29 H mg/dl
(7-17)
Glucose 110 H mg/dl
(70-99)
02/01/24 17:35
02/01/24 17:35
Vital Signs
Initial and Last Documented VS:
Initial Vital Signs
Temp
98.1 F
02/01/24 15:20
Last Documented Vital Signs
Temp Pulse Pulse Ox
98.1 F 100 98
02/01/24 15:20 02/01/24 15:29 02/01/24 15:29
<Tanna Valerio PA-C - Last Filed: 02/01/24 18:23>
MDM/Problems Addressed
Differential Diagnosis Includes:
78yoF here requesting rehab placement. Just got out of [facility] rehab facility 3 days ago. Now at independent living and unable to care for herself. No other complaints. She is well-appearing in no acute distress. Differential diagnosis includes
but is not limited to: Ambulatory dysfunction, muscle atrophy, failure to thrive
Initial ED plan: Will consult physical therapy and case management.
<Tanna Valerio PA-C - Last Filed: 02/01/24 18:23>
*Critical Care Note
Total Time (30-74mins, 75-104mins- exclusive of procedures): Not Applicable
<Tanna Valerio PA-C - Last Filed: 02/01/24 18:23>
Update Note
Update Note:
Patient evaluated by physical therapy who recommends short-term rehab placement. Case management unable to place patient today. Patient was admitted for further management.
ED Attending Note
<Tanna Valerio PA-C - Last Filed: 02/01/24 18:23>
-
Portions of this chart may have been created with voice recognition software.� Occasional wrong word or��sound alike� substitutions may have occurred due to the inherent limitations of voice recognition software.
Discharge Plan
Departure
Patient Disposition: Admit
Date of Disposition: 02/01/24
Time of Disposition: 17:45
Presentation/result/management discussed w/ accepting MD/DO: Hospitalist
Discharge Problem:
Ambulatory dysfunction, Generalized weakness
Interventions
Interventions:
*Risk Screen - Suicide Last Done: 02/01/24 15:20
*General Assessment Last Done: 02/01/24 15:20
*Neglect/Abuse Screening Last Done: 02/01/24 15:20
ED- Fall Risk Assessment Last Done: 02/01/24 15:41
--- NOTE | 2024-02-01 16:15 | CM ---
Addendum entered by Mayra Castillo RN 02/01/24 17:56:
CM updated referral with PT notes.
Addendum entered by Mayra Castillo RN 02/01/24 17:12:
CM met with patient in room. Patient stated that she was discharged from [facility] two days ago. She could not tell me what services were set up for her. She discharged back to her [place] apartment. She stated that she was unable to ambulate and an aide
needed to stay with her through the evening.
CM spoke with patient's daughter who stated that she was not made aware that patient was discharged by [facility]. She was unaware of services that were set up for patient. Daughter stated that she assumes that [facility] made
arrangements for patient to be placed in the [facility]. CM advised PT in the hospital made a recommendations for SKILLED Care. Daughter is in agreement with skilled care, but DOES NOT want patient returned to [facility].
CM advised daughter to research facilities on Medicare .gov. Daughter was agreeable to [facility], [facility], but she was agreeable to multiple referrals to see what would be available. CM sent referrals to [facility], [facility], [facility].
Cm will remain available as needed.
Original Note:
CM reviewed medical records.
[2024-02-01 16:43] VITALS: BP 175/65; BP 183/81; PULSE 98
[2024-02-01 17:50] LABS: % Basophils 0.3 % (0-2); % Eosinophils 2.6 % (0-6); % Lymphocytes 16.2 % (20.5-51.1); % Monocytes 8.1 % (1.7-9.3); % Neutrophils 71.8 % (42.2-75.2); Absolute Eosinophils 0.2 10^3/uL (0-0.7); Absolute Immature Granulocytes 0.1 10^3/uL (0-0.05); Absolute Lymphocytes 1.5 10^3/uL (1.2-3.4); Absolute Monocytes 0.7 10^3/uL (0.1-0.6); Absolute Neutrophils 6.5 10^3/uL (1.4-6.5); Hematocrit 31.9 % (37.0-47.0); Hemoglobin 10.4 g/dL (12.0-16.0); Mean Corp Hgb Conc. 32.6 g/dL (33.0-37.0); Mean Corpuscular Volume 85.8 fL (81.0-99.0); Mean Platelet Volume 10.1 fL (7.4-10.4); Nucleated Red Blood Cells % 0 %; Platelet Count 297 10^3/uL (130-400); Red Blood Cell Count 3.72 10^6/uL (4.20-5.40); Red Cell Dist. Width 14.7 % (11.5-14.5); White Blood Cell Count 9.1 10^3/uL (4.8-10.8)
[2024-02-01 18:06] LABS: ALT (SGPT) 16 U/L (0-35); AST (SGOT) 24 U/L (14-36); Albumin 3.6 g/dl (3.5-5.0); Alkaline Phosphatase 103 U/L (38-126); Blood Urea Nitrogen 29 mg/dl (7-17); Calcium 9.9 mg/dl (8.4-10.2); Carbon Dioxide 25 mmol/L (22-30); Chloride 104 mmol/L (98-107); Estimated Creatinine Clearance 43 ml/min; Glucose 110 mg/dl (70-99); Potassium 3.8 mmol/L (3.5-5.1); Sodium 144 mmol/L (135-145); Total Bilirubin 0.4 mg/dl (0.2-1.3); Total Protein 6.7 g/dl (6.3-8.2); eGFR 57.31
--- NOTE | 2024-02-01 18:54 | HPS.HSE ---
Family Physician
-
Family Physician: Ken Mckeon
Chief Complaint
-
generalized weakness and discomfort/swelling of feet
History of Present Illness
78yo F with PMH of HTN, HLD, TIA, depression/anxiety presenting to ED 01/31 for generalized weakness and discomfort/swelling of feet. She was recently admitted to 12/10-12/18 then went to SNF rehab at [facility]. She was home for the past 2-3 days and
reports that her physical strength and endurance have regressed significantly compared to her baseline before the last hospitalization. She used to work out daily and walk 1.5 miles with her dobermans. Now she feels short of breath with activity.
She denies fevers, chills, headache, lightheadedness, dizziness, chest pain, shortness of breath at rest, abdominal pain, nausea, vomiting, diarrhea. Reports constipation, and last bowel movement was >3 days ago. Denies recent black or bloody
stools.
Medical History
Past Medical History
Past Medical History: Reports Cancer, CVA, HTN, Hypercholesterolemia, Psychiatric and Other
Additional Past Medical History:
HTN
HLD
TIA
Sleep apnea
H/o breast cancer s/p mastectomy
Depression
Anxiety
Past Surgical History: Reports Gynocological
Additional Past Surgical History:
Hysterectomy
Mastectomy
Social History
Tobacco: Non-smoker
Alcohol: None
Drug: None
Living: With Family
Family History
Family History: Not pertinent
Allergies / Home Medications
Allergies reflects when Allergies were last updated in [facility].
Home Medications with original date entered in [facility]
Allergy/Medication List:
NKDA
Adhesive- rash
Review of Systems
-
History Source: Patient
A 12 point ROS was completed and negative except as noted: Yes
Physical Exam
Vital Signs
Vital Signs
Temp Pulse Pulse Ox
98.1 F 100 98
02/01/24 15:20 02/01/24 15:29 02/01/24 15:29
Physical Exam
General: Well Developed, Well Nourished, No Apparent Distress, Comfortable and Conversant
HEENT: NormoCephalic, Anicteric and Atraumatic
Respiratory: Clear and Non Labored Respirations
Cardiac: S1/S2 and Regular Rhythm
GI: Soft, Non Tender, Non Distended and Normal Bowel Sounds
Musculoskeletal: No Cyanosis, Edema, Left Lower Extremity, Edema, Right Lower Extremity and Other (2+ pitting edema ankles/feet symmetric bilaterally; no ecchymosis, lesions; dorsalis pedal pulses diminished but present bilaterally, distal
extremities well perfused)
Skin: Warm and Dry
Neuro: Awake, Alert, Oriented, AO x 3, No Motor Deficits (4-5/5 muscle strength upper and lower extremities, bilateral, symmetric) and Nonfocal/grossly intact
Psych: Calm and Intact Judgment/Insight
Laboratory Results
-
02/01/24 17:35
02/01/24 17:35
Laboratory Results
Total Bilirubin 0.4 mg/dl (0.2-1.3) 02/01/24 17:35
AST 24 U/L (14-36) 02/01/24 17:35
ALT 16 U/L (0-35) 02/01/24 17:35
Alkaline Phosphatase 103 U/L (38-126) 02/01/24 17:35
Data Reviewed
-
Lab Data: Labs Reviewed by me and Discussed with Physician
Impression/Plan
-
78yo F with PMH of HTN, HLD, TIA, depression/anxiety presenting to ED for generalized weakness and pain/swelling of both feet. In the ED, PT recommended short-term rehab placement, and case management consulted.
Deconditioning
- Suspect subjective weakness, fatigability, mild exertional dyspnea are due to deconditioning from prior hospitalization and reduced activity level after discharge
- Differential also includes symptomatic anemia less likely given hgb appears at baseline.
- Patient admitted for observation and further management
- Continue PT/OT
- CM involved in discharge planning
LE edema
- Likely related to deconditioning, reduced mobility
- No history of recent trauma to ankles or feet; no ulcers, abrasions, erythema, tenderness that would raise concern for infection. Bilateral nature makes VTE less likely
- Supportive measures, elevate feet in bed, ambulation as tolerated, can trial compression socks
Chronic anemia
- Hgb 10.4 on admission (baseline appears to be 9-10s)
- Not concerned for acute blood loss anemia
- Consider oral Fe supplementation vs defer until constipation resolves
- Follow CBC
CKD3
- Cr 1.0, Cr clearance 43 on admission
- Follow BMP
HTN
- Continue metoprolol 50 mg and nifedipine 30 mg
Anxiety/depression
- Continue sertraline 100 mg
HLD
- Continue atorvastatin 40 mg
Constipation
- Miralax prn, docusate w senna prn, dulcolax suppository prn, mag hydroxide prn
Code status: full
VTE ppx: lovenox 40mg sc qpm
Diet: regular
Dispo planning: pending, likely skilled rehab
--- NOTE | 2024-02-01 20:30 | PTCARENOTE ---
pt received from ED via stretcher. Pt transfer from stretcher to bed, vitals obtained and stable. Pt AAOX3, makes needs known. Oriented to room, call gutierrez within reach. Will continue to monitor.
[2024-02-01] MEDS: VITAMIN C 1000 MG PO (21:56)
[2024-02-01] MEDS: LOW STRENGTH ASPIRIN 81 MG PO (21:56)
[2024-02-01] MEDS: LIPITOR 40 MG PO (21:57)
[2024-02-01 23:00] VITALS: BP 164/75
[2024-02-02 07:32] LABS: % Basophils 0.6 % (0-2); % Immature Granulocytes 1.5 % (0-0.5); % Lymphocytes 17.6 % (20.5-51.1); % Monocytes 8.3 % (1.7-9.3); Absolute Eosinophils 0.3 10^3/uL (0-0.7); Absolute Immature Granulocytes 0.1 10^3/uL (0-0.05); Absolute Lymphocytes 1.2 10^3/uL (1.2-3.4); Absolute Monocytes 0.6 10^3/uL (0.1-0.6); Absolute Neutrophils 4.5 10^3/uL (1.4-6.5); Hematocrit 32.5 % (37.0-47.0); Hemoglobin 10.9 g/dL (12.0-16.0); Mean Corp Hgb Conc. 33.5 g/dL (33.0-37.0); Mean Corpuscular Hgb 29.7 pg (27.0-31.0); Mean Corpuscular Volume 88.6 fL (81.0-99.0); Mean Platelet Volume 10.1 fL (7.4-10.4); Nucleated Red Blood Cells % 0 %; Platelet Count 248 10^3/uL (130-400); Red Blood Cell Count 3.67 10^6/uL (4.20-5.40); Red Cell Dist. Width 14.6 % (11.5-14.5); White Blood Cell Count 6.7 10^3/uL (4.8-10.8)
[2024-02-02 07:33] LABS: Blood Urea Nitrogen 25 mg/dl (7-17); Calcium 9.9 mg/dl (8.4-10.2); Carbon Dioxide 24 mmol/L (22-30); Chloride 108 mmol/L (98-107); Estimated Creatinine Clearance 53 ml/min; Glucose 108 mg/dl (70-99); Potassium 3.9 mmol/L (3.5-5.1); Sodium 145 mmol/L (135-145); eGFR > 60.00
[2024-02-02 07:54] VITALS: BP 175/81
[2024-02-02 08:27] LABS: Vitamin B12 523 pg/ml (239-931)
[2024-02-02] MEDS: FLOMAX 0.4 MG PO (08:46)
[2024-02-02] MEDS: ZOLOFT 100 MG PO (08:47)
[2024-02-02] MEDS: THERAGRAN 1 TABLET PO (08:47)
[2024-02-02] MEDS: NEURONTIN 100 MG PO (08:47)
[2024-02-02] MEDS: TOPROL XL 50 MG PO (08:47)
[2024-02-02] MEDS: APRESOLINE 50 MG PO (10:03)
--- NOTE | 2024-02-02 12:18 | W.PN.HOSP.TC ---
Today's Communication/Plan
-
PT/OT, discharge planning for facility
Assessment / Plan
Assessment / Plan
#Deconditioning/ambulatory dysfunction
-Planning for PT/OT with new facility selected
-Patient had bad experience at [facility]
#Lower extremity edema
-Likely chronic venous insufficiency, may be related to deconditioning
-Will start compression stockings
#Hypertension
-Home medications include metoprolol; nifedipine per records though she states she never took
-She states that she wants to run any new medicine by her regular doctors
-Will add on hydralazine as needed for spikes in BP > 160 mmHg
#Chronic normocytic anemia
-No signs of active bleeding or bruising
-Hemoglobin stable near 10.5
#CKD 3
-Creatinine baseline near 1.0, creatinine clearance 43
-Continue to monitor BMP
#HLD
-No known ASCVD, consider de-escalating to moderate intensity statin
#Constipation
-Continue with home bowel regimen
#Anxiety/depression
-Continue on home sertraline dose
DVT prophylaxis: Lovenox
Diet: Regular
CODE STATUS: Full code
Pending PT OT
Anticipated Discharge: Within 24 hours
Subjective/Interval History
-
Date of Service: February 02, 2024
Seen and examined the bedside. No acute events overnight.
AFVSS
Denies any acute complaints
Objective Data
-
Labs:
Laboratory Results
02/02/24
07:06
WBC 6.7
Hgb 10.9 L
Hct 32.5 L
Plt Count 248
Sodium 145
Potassium 3.9
Chloride 108 H
Carbon Dioxide 24
BUN 25 H
Creatinine 0.8
Glucose 108 H
Calcium 9.9
Vital Signs:
Vital Signs
Temp Pulse Resp BP Pulse Ox
97.7 F 79 16 175/81 98
02/02/24 07:54 02/02/24 07:54 02/02/24 07:54 02/02/24 07:54 02/02/24 07:54
I&O
02/01/24 02/02/24 02/03/24
06:59 06:59 06:59
Intake Total 0 / 0
Output Total 200 / 200
Balance -200 / -200
Review of Systems
-
History Source: Patient
All other systems: Reviewed and negative
Physical Exam
-
General: No Apparent Distress and Comfortable
HEENT: Normocephalic, Atraumatic and Moist Mucous Membranes
Respiratory: Clear to Auscultation and Non Labored Respirations
Cardiac: Regular Rhythm and S1/S2; Negative Murmur, Rub or Gallop
GI: Soft, Nontender, Nondistended and Normal Bowel Sounds
Musculoskeletal: No Clubbing, No Cyanosis, No Edema and Other (Trace pedal edema)
Skin: Warm, Dry and Rash
Neuro: AO x 3, Nonfocal/Grossly Intact and Central Nerve's Intact
Data Reviewed
-
Labs: Labs Reviewed by me
[2024-02-02 15:27] VITALS: BP 133/70
[2024-02-02] MEDS: LOVENOX 40 MG SC (17:22)
[2024-02-02] MEDS: LIPITOR 40 MG PO (20:22)
[2024-02-02] MEDS: LOW STRENGTH ASPIRIN 81 MG PO (20:22)
[2024-02-02] MEDS: VITAMIN C 1000 MG PO (20:22)
[2024-02-02 23:00] VITALS: BP 139/68
[2024-02-03 03:00] VITALS: BP 146/64
[2024-02-03 07:00] VITALS: BP 164/72
[2024-02-03] MEDS: TOPROL XL 50 MG PO (09:01)
[2024-02-03] MEDS: ZOLOFT 100 MG PO (09:01)
[2024-02-03] MEDS: FLOMAX 0.4 MG PO (09:01)
[2024-02-03] MEDS: THERAGRAN 1 TABLET PO (09:01)
[2024-02-03] MEDS: NEURONTIN 100 MG PO (09:01)
--- NOTE | 2024-02-03 12:16 | W.PN.HOSP.TC ---
Today's Communication/Plan
-
Continue with PT/OT while here
Discharge to SNF tomorrow
Assessment / Plan
Assessment / Plan
#Deconditioning/ambulatory dysfunction
-Planning for PT/OT with new facility selected
-Patient had bad experience at [facility]
#Lower extremity edema
-Likely chronic venous insufficiency, may be related to deconditioning
-Will start compression stockings
#Hypertension
-Home medications include metoprolol; nifedipine per records though she states she never took
-She states that she wants to run any new medicine by her regular doctors
-Will add on hydralazine as needed for spikes in BP > 160 mmHg
#Chronic normocytic anemia
-No signs of active bleeding or bruising
-Hemoglobin stable near 10.5
#CKD 3
-Creatinine baseline near 1.0, creatinine clearance 43
-Continue to monitor BMP
#HLD
-No known ASCVD, consider de-escalating to moderate intensity statin
#Constipation
-Continue with home bowel regimen
#Anxiety/depression
-Continue on home sertraline dose
DVT prophylaxis: Lovenox
Diet: Regular
CODE STATUS: Full code
Medically stable for discharge today. Per case management, she has excepting beds but will not be able to go to SNF until tomorrow, 02/04/2024.
Anticipated Discharge: Within 24 hours
Subjective/Interval History
-
Date of Service: February 03, 2024
Seen and examined at bedside. No acute events reported overnight. AFVSS this morning.
She denies any acute complaints to me. States she is feels ready to go to rehab.
She denies chest pain, shortness of breath, fevers or chills, nausea, vomiting, diarrhea, constipation, urinary issues, abnormal bleeding or bruising, paresthesias or weakness
Objective Data
-
Vital Signs:
Vital Signs
Temp Pulse Resp BP Pulse Ox
97.6 F 80 16 164/72 95
02/03/24 07:00 02/03/24 07:00 02/03/24 07:00 02/03/24 07:00 02/03/24 08:15
I&O
02/02/24 02/03/24 02/04/24
06:59 06:59 06:59
Intake Total 960 / 960 120 / 120
Output Total 700 / 700 1050 / 1050
Balance 260 / 260 -930 / -930
Review of Systems
-
History Source: Patient
All other systems: Reviewed and negative
Physical Exam
-
General: Well Nourished, No Apparent Distress and Comfortable
HEENT: Normocephalic, Atraumatic and Moist Mucous Membranes
Respiratory: Clear to Auscultation and Non Labored Respirations; Negative Wheezes, Rales or Rhonchi
Cardiac: Regular Rhythm and S1/S2; Negative Murmur, Rub, JVD or Gallop
GI: Soft, Nontender, Nondistended and Normal Bowel Sounds
Musculoskeletal: No Clubbing, No Cyanosis and No Edema
Skin: Warm and Dry; Negative Rash
Neuro: AO x 3, Nonfocal/Grossly Intact and Central Nerve's Intact
[2024-02-03 15:00] VITALS: BP 137/68
[2024-02-03] MEDS: LOVENOX 40 MG SC (17:10)
[2024-02-03] MEDS: LOW STRENGTH ASPIRIN 81 MG PO (20:17)
[2024-02-03] MEDS: VITAMIN C 1000 MG PO (20:17)
[2024-02-03] MEDS: LIPITOR 40 MG PO (20:17)
[2024-02-03 23:54] VITALS: BP 140/49
[2024-02-04] MEDS: FLOMAX 0.4 MG PO (07:57)
[2024-02-04] MEDS: THERAGRAN 1 TABLET PO (07:57)
[2024-02-04] MEDS: ZOLOFT 100 MG PO (07:57)
[2024-02-04] MEDS: NEURONTIN 100 MG PO (07:57)
[2024-02-04] MEDS: TOPROL XL 50 MG PO (07:57)
[2024-02-04 08:01] VITALS: BP 149/68
--- NOTE | 2024-02-04 09:49 | W.PN.HOSP.TC ---
Today's Communication/Plan
-
awaiting SNF placement. Medically stable for DC. CM aware.
Assessment / Plan
Assessment / Plan
Assessment:
Deconditioning/ambulatory dysfunction
Recent left hip fracture s/p left hip repair 12/04/23
- awaiting SNF placement. CM aware
Lower extremity edema
- likely chronic venous insufficiency, may be related to deconditioning
- will start compression stockings
Essential Hypertension
- Home medications include metoprolol; nifedipine per records though she states she never took
- She states that she wants to run any new medicine by her regular doctors
- Will add on hydralazine as needed for spikes in BP > 160 mmHg
Chronic normocytic anemia
- No signs of active bleeding or bruising
- Hemoglobin stable near 10.5
CKD 3b
- Creatinine baseline near 1.0, creatinine clearance 43
- Continue to monitor BMP
HLD
- continue statin
Constipation
- continue with home bowel regimen
Anxiety/depression
- continue on home sertraline dose
R breast cancer s/p mastectomy
DVT prophylaxis: Lovenox
Code: Full
Anticipated Discharge: Within 24 hours
Subjective/Interval History
-
Date of Service: February 04, 2024
no new complaints at present
Objective Data
-
Vital Signs:
Vital Signs
Temp Pulse Resp BP Pulse Ox
98 F 77 16 149/68 95
02/04/24 08:01 02/04/24 08:01 02/04/24 08:01 02/04/24 08:01 02/04/24 08:15
I&O
02/03/24 02/04/24 02/05/24
06:59 06:59 06:59
Intake Total 960 / 960 1550 / 1550
Output Total 700 / 700 1850 / 1850
Balance 260 / 260 -300 / -300
Physical Exam
-
General: No Apparent Distress
HEENT: Normocephalic and Atraumatic
Respiratory: Negative Wheezes
Cardiac: Regular Rhythm and S1/S2
GI: Soft and Nontender
Genito-urinary: No Costovertebral Tender
Musculoskeletal: No Edema
Neuro: AO x 3
Psych: Calm
Data Reviewed
-
Total Time Spent with Patient (in minutes): 41
Labs: Labs Reviewed by me
[2024-02-04 11:35] VITALS: BP 138/91
[2024-02-04 15:35] VITALS: BP 132/71
--- NOTE | 2024-02-04 17:20 | CM ---
indicated dc soon .
Spoke with Tatyana Strauss she offered bed .
Spoke with sadia Garner [phone] she agreed with Tatyana . Pt agreed with Tatyana.
IMM reviewed with pt . IMM signed on chart.
Tatyana
report [phone]
fax [phone]
PLAN To Omar at [facility].
[2024-02-04] MEDS: LOVENOX 40 MG SC (17:26)
[2024-02-04] MEDS: LIPITOR 40 MG PO (21:28)
[2024-02-04] MEDS: VITAMIN C 1000 MG PO (21:28)
[2024-02-04] MEDS: LOW STRENGTH ASPIRIN 81 MG PO (21:28)
[2024-02-04 23:30] VITALS: BP 117/71
[2024-02-05 07:45] VITALS: BP 176/78
[2024-02-05] MEDS: FLOMAX 0.4 MG PO (08:28)
[2024-02-05] MEDS: ZOLOFT 100 MG PO (08:28)
[2024-02-05] MEDS: THERAGRAN 1 TABLET PO (08:29)
[2024-02-05] MEDS: TOPROL XL 50 MG PO (08:29)
[2024-02-05] MEDS: NEURONTIN 100 MG PO (08:29)
--- NOTE | 2024-02-05 11:04 | W.PN.HOSP.TC ---
Today's Communication/Plan
-
dc to SNF
Assessment / Plan
Assessment / Plan
Assessment:
Deconditioning/ambulatory dysfunction
Recent left hip fracture s/p left hip repair 12/04/23
- for SNF placement today
Lower extremity edema
- likely chronic venous insufficiency, may be related to deconditioning
- continue compression stockings
Essential Hypertension
- Home medications include metoprolol; nifedipine per records though she states she never took
- She states that she wants to run any new medicine by her regular doctors
- Will add on hydralazine as needed for spikes in BP > 160 mmHg
Chronic normocytic anemia
- No signs of active bleeding or bruising
- Hemoglobin stable near 10.5
CKD 3b
- Creatinine baseline near 1.0, creatinine clearance 43
- Continue to monitor BMP
HLD
- continue statin
Constipation
- continue with home bowel regimen
Anxiety/depression
- continue on home sertraline dose
R breast cancer s/p mastectomy
CEASAR on CPAP
DVT prophylaxis: Lovenox
Code: Full
More than 30 minutes spent in discharge including
Final examination of the patient
Summarizing hospital stay
Instructions for continuing care to all relevant caregivers
Preparation of discharge records, prescriptions, and referral forms
Total time spent (in minutes): 41
Anticipated Discharge: Today
Subjective/Interval History
-
Date of Service: February 05, 2024
no new complaints presently
Objective Data
-
Vital Signs:
Vital Signs
Temp Pulse Resp BP Pulse Ox
97.6 F 72 18 176/78 95
02/05/24 07:45 02/05/24 07:45 02/05/24 07:45 02/05/24 07:45 02/05/24 07:45
I&O
02/04/24 02/05/24 02/06/24
06:59 06:59 06:59
Intake Total 1550 / 1550 780 / 780
Output Total 1850 / 1850 1600 / 1600
Balance -300 / -300 -820 / -820
Physical Exam
-
General: No Apparent Distress
HEENT: Normocephalic and Atraumatic
Respiratory: Negative Wheezes
Cardiac: Regular Rhythm and S1/S2
GI: Soft
Neuro: AO x 3
Psych: Calm
Data Reviewed
-
Total Time Spent with Patient (in minutes): 42
Labs: Labs Reviewed by me
--- NOTE | 2024-02-05 11:06 | W.DS.TRANS ---
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
-
Discharge Instructions:
Discharge Diagnosis/Procedures Ambulatory dysfunction/deconditioning
Diet No restrictions
Activity As tolerated
Driving Restrictions No driving for 24 hours
Bathing Restrictions None
Blood Work None
Other Services PT,OT
Instructions: Strengthening Your Lower Body and Core
Stand-Alone Forms:
Changes to Home Medications: No
Discharge Medications:
DC Medications w/original date entered in [employer]
aspirin 81 mg chewable tablet 81 mg PO HS Blood Clot Prevention/Tx 01/21/15
sertraline 100 mg tablet 100 mg PO DAILY depression/anxiety 01/21/15
atorvastatin 40 mg tablet 40 mg PO HS High Cholesterol 12/03/23
coQ10 (ubiquinol) 200 mg capsule 400 mg PO DAILY Supplement 12/03/23
gabapentin 100 mg capsule 100 mg PO DAILY Pain 12/03/23
ascorbic acid (vitamin C) 1,000 mg tablet (Vitamin C) 1 g PO HS Supplement 02/01/24
metoprolol succinate 25 mg tablet,extended release 24 hr 25 mg PO DAILY Blood Pressure 02/01/24
therapeutic multivitamin 1 tab PO DAILY Supplement 02/01/24
acetaminophen 325 mg tablet 650 mg (2 x 325 mg) PO Q4HPRN PRN mild pain/fever>101 1 month #14 tabs 02/03/24
bisacodyl 10 mg rectal suppository 10 mg [place] DAILYPRN PRN if mom is ineffective/day 5 no 1 month #30 ea 02/03/24
magnesium hydroxide 400 mg/5 mL oral suspension 15 ml PO DAILYPRN PRN if no bm on day 4 1 month #355 mL 02/03/24
multivitamin with folic acid 400 mcg tablet (Tab-A-Janna) 1 tab PO DAILY 1 month #30 tabs 02/03/24
sodium phosphates 19 gram-7 gram/118 mL enema (Enema) 118 ml [place] DAILYPRN PRN if dulcolax is ineffective/day 1 month #133 mL 02/03/24
tamsulosin 0.4 mg capsule 0.4 mg PO DAILY Urinary issue 1 month #30 caps 02/03/24
Home Medication Changes
Pending Results: No
Total time spent discharging patient (in min): 42
[2024-02-05 11:23] VITALS: BP 128/71
--- NOTE | 2024-02-05 11:52 | CM ---
MD entered order for discharge.
Tatyana Strauss said bed ready.
Spoke with dgt Patsy [phone] she agreed with Tatyana she spoke with Carlos A.
Requested ambulance Medical nec form completed.
Tatyana
report [phone]
fax [phone]
PLAN To Tatyana at in.
== END 2024-02-05 13:08 | DRG 93 ==
LOC: 3 WEST ACU 18:19
PROVIDERS: Physician Assistant; Student in an Organized Health Care Education/Training Program; ADMITTING PHYSICIAN Internal Medicine; ATTENDING PHYSICIAN Internal Medicine; EMERGENCY PHYSICIAN Emergency Medicine; FAMILY PHYSICIAN Internal Medicine
DX: R26.89 Other abnormalities of gait and mobility (principal); I12.9 Hypertensive chronic kidney disease with stage 1 through stage 4 chronic kidney disease, or unspecified chronic kidney disease; R62.7 Adult failure to thrive; N18.32 Chronic kidney disease, stage 3b; F41.9 Anxiety disorder, unspecified; F32.A Depression, unspecified; E78.00 Pure hypercholesterolemia, unspecified; R53.1 Weakness; D63.1 Anemia in chronic kidney disease; K59.00 Constipation, unspecified; I87.2 Venous insufficiency (chronic) (peripheral); G47.33 Obstructive sleep apnea (adult) (pediatric); Z74.09 Other reduced mobility; Z96.642 Presence of left artificial hip joint; Z75.1 Person awaiting admission to adequate facility elsewhere; Z86.73 Personal history of transient ischemic attack (TIA), and cerebral infarction without residual deficits; Z85.3 Personal history of malignant neoplasm of breast; Z79.82 Long term (current) use of aspirin; Z79.899 Other long term (current) drug therapy
CPT/HCPCS: 80048; 80053; 82607; 85025; 97116; 97166; 97530; 99285

== ENCOUNTER → 2024-02-11 11:24 | Outpatient (REF) | payer MEDICARE, OTHER, SELFPAY ==
[2024-02-11 12:53] LABS: % Basophils 0.4 % (0-2); % Eosinophils 5.2 % (0-6); % Immature Granulocytes 1.9 % (0-0.5); % Lymphocytes 21.2 % (20.5-51.1); % Neutrophils 64.3 % (42.2-75.2); Absolute Eosinophils 0.4 10^3/uL (0-0.7); Absolute Immature Granulocytes 0.2 10^3/uL (0-0.05); Absolute Lymphocytes 1.7 10^3/uL (1.2-3.4); Absolute Monocytes 0.6 10^3/uL (0.1-0.6); Absolute Neutrophils 5.2 10^3/uL (1.4-6.5); Hematocrit 28.3 % (37.0-47.0); Hemoglobin 8.9 g/dL (12.0-16.0); Mean Corp Hgb Conc. 31.4 g/dL (33.0-37.0); Mean Corpuscular Hgb 27.6 pg (27.0-31.0); Mean Corpuscular Volume 87.9 fL (81.0-99.0); Mean Platelet Volume 10.5 fL (7.4-10.4); Nucleated Red Blood Cells % 0 %; Platelet Count 278 10^3/uL (130-400); Red Blood Cell Count 3.22 10^6/uL (4.20-5.40); Red Cell Dist. Width 15.4 % (11.5-14.5)
[2024-02-11 13:16] LABS: ALT (SGPT) 15 U/L (0-35); AST (SGOT) 18 U/L (14-36); Alkaline Phosphatase 84 U/L (38-126); Blood Urea Nitrogen 28 mg/dl (7-17); Calcium 9.6 mg/dl (8.4-10.2); Carbon Dioxide 28 mmol/L (22-30); Chloride 106 mmol/L (98-107); Glucose 95 mg/dl (70-99); HDL Cholesterol 29 mg/dl; LDL Cholesterol, Calculated 75 mg/dl; Potassium 4.3 mmol/L (3.5-5.1); Sodium 143 mmol/L (135-145); Total Bilirubin 0.2 mg/dl (0.2-1.3); Total Cholesterol 136 mg/dl (50-199); Total Protein 5.6 g/dl (6.3-8.2); Triglyceride 162 mg/dl (10-149); Very Low Density Lipoprotein 32 mg/dl (0-30); eGFR 57.31
[2024-02-11 13:45] LABS: TSH 3.14 uIU/ml (0.47-4.68)
== END ==
LOC: OLABN 11:24
PROVIDERS: ATTENDING PHYSICIAN Student in an Organized Health Care Education/Training Program
DX: R33.9 Retention of urine, unspecified (principal); I10 Essential (primary) hypertension; E78.5 Hyperlipidemia, unspecified; E03.9 Hypothyroidism, unspecified; M62.81 Muscle weakness (generalized); R53.83 Other fatigue
CPT/HCPCS: 36415; 80053; 80061; 83735; 84443; 85025

== ENCOUNTER → 2024-03-21 12:21 | Outpatient (REF) | payer OTHER, MEDICARE, SELFPAY ==
[2024-03-21 12:55] LABS: Blood Urea Nitrogen 28 mg/dl (7-17); Calcium 9.2 mg/dl (8.4-10.2); Carbon Dioxide 29 mmol/L (22-30); Chloride 104 mmol/L (98-107); Glucose 90 mg/dl (70-99); Potassium 4.4 mmol/L (3.5-5.1); Sodium 142 mmol/L (135-145); eGFR 51.11
== END ==
LOC: OLABN 12:21
PROVIDERS: ATTENDING PHYSICIAN Student in an Organized Health Care Education/Training Program
DX: R60.9 Edema, unspecified (principal)
CPT/HCPCS: 36415; 80048